=== PATIENT | male | born 1970 | race American Indian/Alaskan Native ===

== ENCOUNTER 2019-06-06 18:28 | Emergency (ER) | payer OTHER ==
[2019-06-06] MEDS ORDERED: NACL 0.9% 1000 ML 1,000 ML IV ONE ×3 (19:41→21:22)
[2019-06-06] MEDS ORDERED: ZOFRAN IV ONE (19:41)
[2019-06-06] MEDS ORDERED: SUBLIMAZE IV ONE (19:41)
--- NOTE | 2019-06-06 19:47 | Emergency Department Report ---
HPI - General Chief Complaint: Back Pain/Injury Time Seen by Provider: 06/06/19 19:33 - HPI HPI: Room 26 The patient is a 48-year-old male presenting with a chief complaint of muscle spasms. The patient states today all working in a hot environment he had profuse sweating. Patient states she began having sharp pain in his left shoulder which then radiated to his right shoulder. Patient states the pain then radiated to his neck. The patient states he went to lay down and rest and the pain subsided. The patient went back to worsen the pain returned. Patient developed pain across his back that felt like spasms. Any type of movement for the spasms on. Patient denies nausea vomiting, chest pain or abdominal pain. Patient denies shortness of breath. EMS was called and administered IV fluids and the patient states he began to improve. Patient states when his pain began initially gave a score of 7-8/10 since he's been hydrated his pain is decreased to 2-3/10 Location: [See above] Duration: [See above] Quality: [See above] Severity: [See above] Modifying factors: [see above] Context: [see above] Mode of transportation: [not driving] ED Past Medical Hx - Past Medical History Previous Medical History?: Yes Hx Hypertension: Yes Hx Renal Disease: Yes (renal insufficiency) - Surgical History Past Surgical History?: No - Family History Family history: no significant - Social History Smoking Status: Never Smoker Substance Use Type: Marijuana - Medications Home Medications: Home Medications Medication Instructions Recorded Confirmed Last Taken Type Cyclobenzaprine [Flexeril] 10 mg PO TID PRN #10 tablet 06/06/19 Unknown Rx ED Review of Systems ROS: Stated complaint: BACK PAIN Other details as noted in HPI Constitutional: diaphoresis Eyes: denies: eye pain ENT: denies: throat pain Respiratory: denies: shortness of breath Cardiovascular: denies: chest pain Endocrine: no symptoms reported Gastrointestinal: denies: abdominal pain, nausea, vomiting Genitourinary: denies: dysuria Musculoskeletal: back pain, myalgia Neurological: denies: headache Physical Exam - Physical Exam Vital Signs: Vital Signs 06/06/19 18:57 Temperature 98.1 F Pulse Rate 59 L Respiratory 16 Rate Blood Pressure 182/110 O2 Sat by Pulse 98 Oximetry Physical Exam: GENERAL: The patient is well-developed well-nourished male lying on stretcher not appearing to be in acute distress. [] HEENT: Normocephalic. Atraumatic. Extraocular motions are intact. Patient has moist mucous membranes. NECK: Supple. No meningitic signs are noted. Trachea midline CHEST/LUNGS: Clear to auscultation. There is no respiratory distress noted. HEART/CARDIOVASCULAR: Regular. There is no tachycardia. There is no gallop rub or murmur. ABDOMEN: Abdomen is soft, nontender. Patient has normal bowel sounds. There is no abdominal distention. SKIN: There is no rash. There is no edema. There is no diaphoresis. NEURO: The patient is awake, alert, and oriented. The patient is cooperative. The patient has normal speech MUSCULOSKELETAL: There is no CVA tenderness. Mild soreness to palpation along the trapezius muscle bilaterally. There is no limitation range of motion. There is no evidence of acute injury. ED Course Vital Signs 06/06/19 18:57 Temperature 98.1 F Pulse Rate 59 L Respiratory 16 Rate Blood Pressure 182/110 O2 Sat by Pulse 98 Oximetry ED Medical Decision Making - Lab Data Result diagrams: 06/06/19 20:02 06/06/19 20:02 Laboratory Tests 06/06/19 06/06/19 06/06/19 20:02 20:02 20:02 WBC 12.0 H RBC 5.16 H Hgb 15.0 Hct 45.4 MCV 88 MCH 29 MCHC 33 RDW 14.9 Plt Count 195 Lymph % (Auto) 10.1 L [place] % (Auto) 4.3 Eos % (Auto) 1.7 Baso % (Auto) 0.4 Lymph # 1.2 [place] # 0.5 Eos # 0.2 Baso # 0.0 Seg Neutrophils % 83.5 H Seg Neutrophils # 10.0 H Sodium 141 Potassium 4.0 Chloride 106.1 Carbon Dioxide 25 Anion Gap 14 BUN 19 Creatinine 1.6 H Estimated GFR 57 BUN/Creatinine Ratio 12 Glucose 116 H Calcium 9.1 Magnesium 2.20 Total Creatine Kinase 281 H Urine Color Urine Turbidity Urine pH Ur Specific Circle Urine Protein Urine Glucose (UA) Urine Ketones Urine Blood Urine Nitrite Urine Bilirubin Urine Urobilinogen Ur Leukocyte Esterase Urine WBC (Auto) Urine RBC (Auto) U Epithel Cells (Auto) Urine Mucus 06/06/19 21:30 WBC RBC Hgb Hct MCV MCH MCHC RDW Plt Count Lymph % (Auto) [place] % (Auto) Eos % (Auto) Baso % (Auto) Lymph # [place] # Eos # Baso # Seg Neutrophils % Seg Neutrophils # Sodium Potassium Chloride Carbon Dioxide Anion Gap BUN Creatinine Estimated GFR BUN/Creatinine Ratio Glucose Calcium Magnesium Total Creatine Kinase Urine Color Straw Urine Turbidity Clear Urine pH 6.[address] 1.014 Urine Protein <15 mg/dl Urine Glucose (UA) Neg Urine Ketones Neg Urine Blood Neg Urine Nitrite Neg Urine Bilirubin Neg Urine Urobilinogen < 2.0 Ur Leukocyte Esterase Neg Urine WBC (Auto) 1.0 Urine RBC (Auto) 2.0 U Epithel Cells (Auto) 1.0 Urine Mucus Few - Differential Diagnosis dehydration, rhabdomyolysis, acute heat exhaustion Critical care attestation.: If time is entered above; I have spent that time in minutes in the direct care of this critically ill patient, excluding procedure time. ED Disposition Clinical Impression: Dehydration, Muscle cramping, Renal insufficiency Disposition: TO HOME OR SELFCARE Is pt being admited?: No Does the pt Need Aspirin: No Condition: Stable Instructions: Muscle Cramp (ED), Heatstroke (ED) Additional Instructions: Return to the emergency department immediately should you develop worsening symptoms, fever, inability to tolerate food or liquid or any other concerns. Prescriptions: Cyclobenzaprine [Flexeril] 10 mg PO TID PRN #10 tablet PRN Reason: Muscle Spasm Referrals: 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 Please follow up with her for further evaluation of your kidney function) Time of Disposition: 22:13
[2019-06-06 20:14] LABS: Basophils % (Auto) 0.4 % (0.0-1.8); Eosinophils # (Auto) 0.2 K/mm3 (0.0-0.4); Eosinophils % (Auto) 1.7 % (0.0-4.3); Hematocrit 45.4 % (35.5-45.6); Lymphocytes # (Auto) 1.2 K/mm3 (1.2-5.4); Lymphocytes % (Auto) 10.1 % (13.4-35.0); Mean Corpuscular HGB Conc 33 % (32-34); Mean Corpuscular Volume 88 fl (84-94); Monocytes # (Auto) 0.5 K/mm3 (0.0-0.8); Monocytes % (Auto) 4.3 % (0.0-7.3); Platelet Count 195 K/mm3 (140-440); Red Blood Count 5.16 M/mm3 (3.65-5.03); Red Cell Distribution Width 14.9 % (13.2-15.2)
[2019-06-06 20:43] LABS: Calcium 9.1 mg/dL (8.4-10.2)
[2019-06-06 22:05] LABS: Bilirubin,Urine NEG (Negative); Blood,Urine NEG (Negative); Color,Urine Straw (Yellow); Mucus,Urine FEW /HPF; Protein,Urine <15 mg/dL mg/dL (Negative); Urobilinogen,Urine < 2.0 mg/dL (<2.0)
[2019-06-06 23:06] VITALS: BP 177/97
== END 2019-06-06 23:03 | disposition home or self-care (01) ==
LOC: ED 18:28
DX: E86.0 Dehydration (principal); N28.9 Disorder of kidney and ureter, unspecified; I10 Essential (primary) hypertension; F12.10 Cannabis abuse, uncomplicated
CPT/HCPCS: 36415; 80048; 81001; 82550; 83735; 85025; 96361; 96374; 96375; 99284; J2405; J3010; J7030

== ENCOUNTER 2022-03-29 01:02 | Inpatient (IN) | payer SELFPAY ==
--- NOTE | 2022-03-29 06:26 | Emergency Department Report ---
ED Chest Pain HPI - General Chief Complaint: Chest Pain Stated Complaint: CHEST PAIN Time Seen by Provider: 03/29/22 06:10 Source: patient, RN notes reviewed, old records reviewed Mode of arrival: Ambulatory Limitations: No Limitations - History of Present Illness Initial Comments: This is a pleasant and cooperative 51-year-old gentleman who typically follows at [facility]. He has a history of body mass index of 37.3, hypertension, and possible renal insufficiency. He has not been on medications for a while. He presents to the ER today with a complaint of central chest pain. The pain does not radiate anywhere. He denies vomiting and diaphoresis. Has mild shortness of breath which is chronic and nonexertional. Denies travel, surgery, immobilization, DVT/PE risk factors. Denies additional complaints at this time. No recent cardiac risk ratification that he is aware of. MD Complaint: chest pain, other -: Sudden Onset: during rest Pain Location: substernal, left chest, right chest Pain Radiation: none Severity: mild, moderate Severity scale (0 -10): 7 Quality: aching, pressure Consistency: constant Improves With: nothing Worsens With: nothing Aspirin use within the Past 7 Days: (0) No - Related Data Previous Rx's Medication Instructions Recorded Last Taken Type Cyclobenzaprine [Flexeril] 10 mg PO TID PRN #10 tablet 06/06/19 Unknown Rx Allergies Allergy/AdvReac Type Severity Reaction Status Date / Time No Known Allergies Allergy Verified 06/06/19 18:57 Heart Score - HEART Score History: Moderately suspicious EKG: Non-specific Age: 45-65 Risk factors: > 3 risk factors or hx of atherosclerotic disease Troponin: < normal limit HEART Score: 5 - EKG Read Time Time EKG Completed: :14 EKG Read Time: 01:14 - Critical Actions Critical Actions: 4-6 pts:12-16.6% risk of adverse cardiac event. Should be admitted ED Review of Systems ROS: Stated complaint: CHEST PAIN Other details as noted in HPI Constitutional: denies: diaphoresis, fever Eyes: denies: eye discharge ENT: denies: congestion Respiratory: denies: wheezing Cardiovascular: chest pain Gastrointestinal: denies: abdominal pain, nausea, hematemesis, melena, hematochezia Musculoskeletal: denies: back pain Neurological: denies: weakness Hematological/Lymphatic: denies: easy bleeding ED Past Medical Hx - Past Medical History Hx Hypertension: Yes Hx Renal Disease: Yes (renal insufficiency) - Social History Smoking Status: Never Smoker Substance Use Type: Marijuana - Medications Home Medications: Home Medications Medication Instructions Recorded Confirmed Last Taken Type Cyclobenzaprine [Flexeril] 10 mg PO TID PRN #10 tablet 06/06/19 Unknown Rx ED Physical Exam - General Limitations: No Limitations General appearance: alert, in no apparent distress, obese - Head Head exam: Present: atraumatic, normocephalic - Eye Eye exam: Present: normal appearance, EOMI. Absent: nystagmus - ENT ENT exam: Present: normal exam, normal orophraynx, mucous membranes moist, normal external ear exam - Neck Neck exam: Present: normal inspection, full ROM. Absent: tenderness, meningismus - Respiratory Respiratory exam: Present: normal lung sounds bilaterally. Absent: respiratory distress, wheezes, rales, rhonchi, stridor, decreased breath sounds - Cardiovascular Cardiovascular Exam: Present: regular rate, normal rhythm, normal heart sounds. Absent: bradycardia, tachycardia, irregular rhythm, systolic murmur, diastolic murmur, rubs, gallop - GI/Abdominal GI/Abdominal exam: Present: soft. Absent: distended, tenderness, guarding, rebound, rigid, pulsatile mass - Rectal Rectal exam: Present: deferred - Extremities Exam Extremities exam: Present: normal inspection, full ROM, other (2+ pulses noted in the bilateral upper and lower extremities. There is no palpable cord. negative Homans sign. Muscular compartments are soft. The pelvis is stable.). Absent: pedal edema, calf tenderness - Back Exam Back exam: Present: normal inspection. Absent: tenderness, CVA tenderness (R), CVA tenderness (L), paraspinal tenderness, vertebral tenderness - Neurological Exam Neurological exam: Present: alert, oriented X3, other (No facial droop. Tongue midline. Extraocular movements intact bilaterally. Facial sensation intact to light touch in V1, V2, V3 distribution bilaterally. 5 and a 5 strength in 4 extremities. Sensation intact to light touch in 4 extremities.). Absent: motor sensory deficit - Psychiatric Psychiatric exam: Present: normal affect, normal mood - Skin Skin exam: Present: warm, dry, intact, normal color. Absent: rash ED Course Vital Signs 03/29/22 03/29/22 03/29/22 01:05 05:28 05:30 Temperature 97.9 F Pulse Rate 64 55 L 55 L Respiratory 20 10 L 12 Rate Blood Pressure 180/109 Blood Pressure 204/108 [Left] O2 Sat by Pulse 100 99 Oximetry 03/29/22 03/29/22 05:33 08:14 Temperature 98.0 F Pulse Rate 60 67 Respiratory 11 L Rate Blood Pressure 179/94 Blood Pressure 180/109 [Left] O2 Sat by Pulse 100 Oximetry - Reevaluation(s) Reevaluation #1: 03/29/22 08:28 Differential diagnosis, including not limited to: Acute coronary syndrome, GERD, gastritis, hiatal hernia, pneumonia, costochondritis, hypertensive urgency, hy pertensive nephropathy Assessment and plan: 51-year-old gentleman with chronic hypertension, who is not currently tachycardic, tachypneic or hypoxic, who denies DVT/PE risk factors, who is low risk by Wells criteria for pulmonary embolism, who is PERC negative, has equal pulses in the upper and lower extremities, no pulsatile abdominal mass, unremarkable mediastinum x-ray of chest; aortic disease very unlikely. Patient at moderate risk for major adverse cardiac event as per heart score. He is found to have progression of renal insufficiency, and markedly abnormal EKG. I suspect hypertensive nephropathy, likely secondary to noncompliance, and poor diet and lifestyle. Have recommended admission to the medical service for blood pressure optimization, and cardiac risk ratification. The patient is agreeable to this plan of care. Appropriate medications ordered. Hospital physician, Dr. Bakari Mcgregor to admit to internal medicine service. JUAN C score - Juan C Score Age > 65: (0) No Aspirin use within the Past 7 Days: (0) No 3 or more CAD Risk Factors: (1) Yes 2 or more Angina events in past 24 hrs: (0) No Known CAD with more than 50% Stenosis: (0) No Elevated Cardiac Markers: (0) No ST Deviation Greater than 0.5mm: (0) No JUAN C Score: 1 ED Medical Decision Making - Lab Data Result diagrams: 03/29/22 06:46 03/29/22 06:46 Vital Signs 03/29/22 03/29/22 03/29/22 01:05 05:28 05:30 Temperature 97.9 F Pulse Rate 64 55 L 55 L Respiratory 20 10 L 12 Rate Blood Pressure 180/109 Blood Pressure 204/108 [Left] O2 Sat by Pulse 100 99 Oximetry 03/29/22 03/29/22 05:33 08:14 Temperature 98.0 F Pulse Rate 60 67 Respiratory 11 L Rate Blood Pressure 179/94 Blood Pressure 180/109 [Left] O2 Sat by Pulse 100 Oximetry Lab Results 03/29/22 03/29/22 03/29/22 Range/Units 06:46 06:46 06:46 WBC 10.4 (4.5-11.0) K/mm3 RBC 5.46 H (3.65-5.03) M/mm3 Hgb 16.0 H (11.8-15.2) gm/dl Hct 48.9 H (35.5-45.6) % MCV 90 (84-94) fl MCH 29 (28-32) pg MCHC 33 (32-34) % RDW 15.3 H (13.2-15.2) % Plt Count 183 (140-440) K/mm3 Lymph % (Auto) 16.4 (13.4-35.0) % [place] % (Auto) 6.1 (0.0-7.3) % Eos % (Auto) 3.6 (0.0-4.3) % Baso % (Auto) 0.4 (0.0-1.8) % Lymph # (Auto) 1.7 (1.2-5.4) K/mm3 [place] # (Auto) 0.6 (0.0-0.8) K/mm3 Eos # (Auto) 0.4 (0.0-0.4) K/mm3 Baso # (Auto) 0.0 (0.0-0.1) K/mm3 Seg Neutrophils % 73.5 H (40.0-70.0) % Seg Neutrophils # 7.6 (1.8-7.7) K/mm3 PT 13.2 (12.2-14.9) Sec. INR 0.91 (0.87-1.13) Sodium 135 L (137-145) mmol/L Potassium 4.8 (3.6-5.0) mmol/L Chloride 100.8 (98-107) mmol/L Carbon Dioxide 26 (22-30) mmol/L Anion Gap 13 mmol/L BUN 26 H (9-20) mg/dL Creatinine 2.0 H (0.8-1.3) mg/dL Estimated GFR 43 ml/min BUN/Creatinine Ratio 13 % Glucose 122 H (75-100) mg/dL Calcium 9.6 (8.4-10.2) mg/dL Total Bilirubin 0.20 (0.1-1.2) mg/dL AST 16 (5-40) units/L ALT 22 (7-56) units/L Alkaline Phosphatase 48 (35-129) units/L Troponin T 0.011 (0.00-0.029) ng/mL Total Protein 6.7 (6.3-8.2) g/dL Albumin 4.1 (3.9-5) g/dL Albumin/Globulin Ratio 1.6 % - EKG Data -: EKG Interpreted by Ok EKG shows normal: sinus rhythm - EKG Data When compared to previous EKG there are: previous EKG unavailable 03/29/22 08:24 The EKG is interpreted at 01: 1 4 Sinus rhythm, rate 58 bpm. Leftward axis deviation. Right bundle branch block, left ventricular hypertrophy. QTC 42 ms. Motion artifact. Abnormal EKG. Not a STEMI - Radiology Data Radiology results: pending, report reviewed, image reviewed CHEST 1 VIEW 03/29/2022 5:58 AM INDICATION / CLINICAL INFORMATION: Chest Pain. COMPARISON: None available. FINDINGS: SUPPORT DEVICES: None. HEART / MEDIASTINUM: No significant abnormality. LUNGS / PLEURA: No significant pulmonary abnormality. No significant pleural effusion. No pneumothorax. ADDITIONAL FINDINGS: No significant additional findings. IMPRESSION: 1. No acute abnormality of the chest. Signer Name: Randal Miller MD Signed: 03/29/2022 6:03 AM Workstation Name: [id number] Critical care attestation.: If time is entered above; I have spent that time in minutes in the direct care of this critically ill patient, excluding procedure time. ED Disposition Clinical Impression: Acute chest pain, Renal insufficiency, Hypertensive urgency Disposition: ADMITTED INPATIENT Is pt being admited?: Yes Does the pt Need Aspirin: No Condition: Good Instructions: Chest Pain (ED)
--- NOTE | 2022-03-29 07:08 | XRay Report ---
CHEST 1 VIEW 03/29/2022 5:58 AM INDICATION / CLINICAL INFORMATION: Chest Pain. COMPARISON: None available. FINDINGS: SUPPORT DEVICES: None. HEART / MEDIASTINUM: No significant abnormality. LUNGS / PLEURA: No significant pulmonary abnormality. No significant pleural effusion. No pneumothora x. ADDITIONAL FINDINGS: No significant additional findings. IMPRESSION: 1. No acute abnormality of the chest. Signer Name: Randal Miller MD Signed: 03/29/2022 7:03 AM Workstation Name: [id number]
[2022-03-29 07:23] LABS: Basophils % (Auto) 0.4 % (0.0-1.8); Eosinophils # (Auto) 0.4 K/mm3 (0.0-0.4); Eosinophils % (Auto) 3.6 % (0.0-4.3); Hematocrit 48.9 % (35.5-45.6); Lymphocytes # (Auto) 1.7 K/mm3 (1.2-5.4); Lymphocytes % (Auto) 16.4 % (13.4-35.0); Mean Corpuscular HGB Conc 33 % (32-34); Mean Corpuscular Volume 90 fl (84-94); Monocytes # (Auto) 0.6 K/mm3 (0.0-0.8); Monocytes % (Auto) 6.1 % (0.0-7.3); Platelet Count 183 K/mm3 (140-440); Red Blood Count 5.46 M/mm3 (3.65-5.03); Red Cell Distribution Width 15.3 % (13.2-15.2)
[2022-03-29 07:28] LABS: Albumin 4.1 g/dL (3.9-5); Calcium 9.6 mg/dL (8.4-10.2)
[2022-03-29 07:32] LABS: INR 0.91 (0.87-1.13)
[2022-03-29] MEDS ORDERED: hydrALAZINE 20 MG/1 ML INJ IV STA (07:46)
[2022-03-29] MEDS ORDERED: ASPIRIN 325 MG TAB PO ONE (07:46)
[2022-03-29] MEDS ORDERED: SODIUM CHLORIDE 0.9% 500 ML 500 ML IV ONE (07:46)
[2022-03-29] MEDS ORDERED: CYCLOBENZAPRINE 10 MG TAB PO PRN (11:28)
[2022-03-29] MEDS ORDERED: MORPHINE 2 MG/1 ML INJ IV PRN (11:31)
[2022-03-29] MEDS ORDERED: ACETAMINOPHEN 325 MG TAB PO PRN (11:31)
[2022-03-29] MEDS ORDERED: ONDANSETRON 4 MG/2 ML INJ IV PRN (11:31)
[2022-03-29] MEDS ORDERED: HYDROmorphone 1 MG/1 ML INJ IV PRN (11:31)
--- NOTE | 2022-03-29 11:48 | History and Physical Report ---
History of Present Illness Date of examination: 03/29/22 Date of admission: 03/29/2022 Chief complaint: Acute chest pain since a.m. History of present illness: 51-year-old -[place] male with history of hypertension comes in for chest pain since a.m. Chest pain is retrosternal. Nonradiating. No diaphoresis. No shortness of breath. Patient has not been taking his blood pressure medications for the last couple of months. Patient usually goes to [facility]. Chest pain is nonradiating. No exacerbating or relieving factors. In the emergency room patient blood pressure was very high. Blood pressure was 204/108. Patient being admitted for hypertensive emergency acute pain. - Past Medical History --Hypertension: Yes --Renal Disease: Yes (renal insufficiency) - Social History Smoking Status: Never Smoker Substance Use Type: Marijuana - Medications Home Medications: Home Medications Medication Instructions Recorded Confirmed Last Taken Type Cyclobenzaprine [Flexeril] 10 mg PO TID PRN #10 tablet 06/06/19 Unknown Rx Review of Systems ROS: Stated complaint: CHEST PAIN Other details as noted in HPI Constitutional: denies: diaphoresis, fever Eyes: denies: eye discharge ENT: denies: congestion Respiratory: denies: wheezing Cardiovascular: chest pain Gastrointestinal: denies: abdominal pain, nausea, hematemesis, melena, hematochezia Musculoskeletal: denies: back pain Neurological: denies: weakness Hematological/Lymphatic: denies: easy bleeding Past History Past Surgical History: No surgical history Family history: hypertension Medications and Allergies Allergies Allergy/AdvReac Type Severity Reaction Status Date / Time No Known Allergies Allergy Verified 06/06/19 18:57 Home Medications Medication Instructions Recorded Confirmed Last Taken Type No Known Home Medications [No 03/30/22 03/30/22 Unknown History Reported Home Medications] Exam - Constitutional Vitals: Temp Pulse Resp BP Pulse Ox 98.0 F 70 17 188/103 100 03/29/22 05:33 03/29/22 08:30 03/29/22 08:30 03/29/22 08:30 03/29/22 08:30 General appearance: Present: no acute distress, well-nourished - EENT Eyes: Present: PERRL ENT: hearing intact, clear oral mucosa - Neck Neck: Present: supple, normal ROM - Respiratory Respiratory effort: normal Respiratory: bilateral: CTA - Cardiovascular Heart rate: 78 Rhythm: regular Heart Sounds: Present: S1 & S2. Absent: rub, click - Extremities Extremities: pulses symmetrical, No edema Peripheral Pulses: within normal limits - Abdominal General gastrointestinal: Present: soft, non-tender, non-distended, normal bowel sounds Male genitourinary: Present: normal - Integumentary Integumentary: Present: clear, warm, dry - Musculoskeletal Musculoskeletal: gait normal, strength equal bilaterally - Psychiatric Psychiatric: appropriate mood/affect, intact judgment & insight - Neurologic Neurologic: CNII-XII intact, moves all extremities HEART Score - HEART Score EKG: Non-specific Age: 45-65 Risk factors: > 3 risk factors or hx of atherosclerotic disease Troponin: Troponin T 0.021 ng/mL (0.00-0.029) 03/29/22 09:26 Troponin: < normal limit - Critical Actions Critical Actions: 4-6 pts:12-16.6% risk of adverse cardiac event. Should be admitted Results - Labs CBC & Chem 7: 03/30/22 15:59 03/30/22 07:16 Labs: Laboratory Last Values WBC 10.4 K/mm3 (4.5-11.0) 03/29/22 06:46 RBC 5.46 M/mm3 (3.65-5.03) H 03/29/22 06:46 Hgb 16.0 gm/dl (11.8-15.2) H 03/29/22 06:46 Hct 48.9 % (35.5-45.6) H 03/29/22 06:46 MCV 90 fl (84-94) 03/29/22 06:46 MCH 29 pg (28-32) 03/29/22 06:46 MCHC 33 % (32-34) 03/29/22 06:46 RDW 15.3 % (13.2-15.2) H 03/29/22 06:46 Plt Count 183 K/mm3 (140-440) 03/29/22 06:46 Lymph % (Auto) 16.4 % (13.4-35.0) 03/29/22 06:46 [place] % (Auto) 6.1 % (0.0-7.3) 03/29/22 06:46 Eos % (Auto) 3.6 % (0.0-4.3) 03/29/22 06:46 Baso % (Auto) 0.4 % (0.0-1.8) 03/29/22 06:46 Lymph # (Auto) 1.7 K/mm3 (1.2-5.4) 03/29/22 06:46 [place] # (Auto) 0.6 K/mm3 (0.0-0.8) 03/29/22 06:46 Eos # (Auto) 0.4 K/mm3 (0.0-0.4) 03/29/22 06:46 Baso # (Auto) 0.0 K/mm3 (0.0-0.1) 03/29/22 06:46 Seg Neutrophils % 73.5 % (40.0-70.0) H 03/29/22 06:46 Seg Neutrophils # 7.6 K/mm3 (1.8-7.7) 03/29/22 06:46 PT 13.2 Sec. (12.2-14.9) 03/29/22 06:46 INR 0.91 (0.87-1.13) 03/29/22 06:46 Sodium 135 mmol/L (137-145) L 03/29/22 06:46 Potassium 4.8 mmol/L (3.6-5.0) 03/29/22 06:46 Chloride 100.8 mmol/L (98-107) 03/29/22 06:46 Carbon Dioxide 26 mmol/L (22-30) 03/29/22 06:46 Anion Gap 13 mmol/L 03/29/22 06:46 BUN 26 mg/dL (9-20) H 03/29/22 06:46 Creatinine 2.0 mg/dL (0.8-1.3) H 03/29/22 06:46 Estimated GFR 43 ml/min 03/29/22 06:46 BUN/Creatinine Ratio 13 % 03/29/22 06:46 Glucose 122 mg/dL (75-100) H 03/29/22 06:46 Calcium 9.6 mg/dL (8.4-10.2) 03/29/22 06:46 Total Bilirubin 0.20 mg/dL (0.1-1.2) 03/29/22 06:46 AST 16 units/L (5-40) 03/29/22 06:46 ALT 22 units/L (7-56) 03/29/22 06:46 Alkaline Phosphatase 48 units/L (35-129) 03/29/22 06:46 Troponin T 0.021 ng/mL (0.00-0.029) 03/29/22 09:26 Total Protein 6.7 g/dL (6.3-8.2) 03/29/22 06:46 Albumin 4.1 g/dL (3.9-5) 03/29/22 06:46 Albumin/Globulin Ratio 1.6 % 03/29/22 06:46 Short CBC 03/29/22 Range/Units 06:46 WBC 10.4 (4.5-11.0) K/mm3 Hgb 16.0 H (11.8-15.2) gm/dl Hct 48.9 H (35.5-45.6) % Plt Count 183 (140-440) K/mm3 BMP 03/29/22 06:46 Sodium 135 L Potassium 4.8 Chloride 100.8 Carbon Dioxide 26 BUN 26 H Creatinine 2.0 H Glucose 122 H Calcium 9.6 Cardiac Enzymes 03/29/22 03/29/22 Range/Units 06:46 09:26 Troponin T 0.011 0.021 (0.00-0.029) ng/mL Liver Function 03/29/22 Range/Units 06:46 Total Bilirubin 0.20 (0.1-1.2) mg/dL AST 16 (5-40) units/L ALT 22 (7-56) units/L Alkaline Phosphatase 48 (35-129) units/L Albumin 4.1 (3.9-5) g/dL - Imaging and Cardiology EKG: report reviewed (LVH by voltage criteria, no acute ST-T wave changes, right bundle branch block) Chest x-ray: report reviewed (No acute findings) Assessment and Plan Advance Directives: Yes (Full code) VTE prophylaxis?: Chemical Plan of care discussed with patient/family: Yes - Patient Problems (1) Hypertensive emergency Current Visit: Yes Status: Acute Plan to address problem: Patient initiated on antihypertensives Nifedipine and carvedilol IV hydralazine as needed (2) NSTEMI (non-ST elevated myocardial infarction) Current Visit: Yes Status: Acute Plan to address problem: Patient initiated on IV heparin Cardiology consult requested (3) WILLIAM (acute kidney injury) Current Visit: Yes Status: Acute Plan to address problem: Nephrology consult requested (4) Advance care planning Current Visit: Yes Status: Acute Plan to address problem: Disease education conducted, care plan discussed, diagnosis discussed, prognosis discussed. Patient is full code. Patient acknowledged understanding and agreement with care plan. +30 minutes. (5) DVT prophylaxis Current Visit: Yes Status: Acute Plan to address problem: On anticoagulation GI prophylaxis.
[2022-03-29] MEDS ORDERED: amLODIPine 5 MG TAB PO SCH (12:00)
[2022-03-29] MEDS ORDERED: carvediloL 6.25 MG TAB PO SCH (12:00)
[2022-03-29] MEDS: VALSARTAN 160MG TAB PO SCH (12:27)
[2022-03-29] MEDS: FAMOTIDINE 20 MG TAB PO SCH (12:27)
[2022-03-29] MEDS: HEPARIN 5,000 UNIT/1 ML VIAL SUB-Q SCH (13:29)
[2022-03-29 14:27] LABS: Chol/HDL Ratio 5.19 %
--- NOTE | 2022-03-29 17:16 | Electrocardiograph Report ---
[facility] Test Date: 2022-03-29 Test Time: 01:11:25 Pat Name: ALCON BRAY Department: Room: [facility] Gender: M Clinical Operations Leader: AMILCAR : 1970 Requested By: DONA FAULKNER Order Number: [id number] Reading MD: Joyce Naqvi Measurements Intervals [place] Rate: 58 P: 69 IN: 187 QRS: -24 QRSD: 177 T: -15 QT: 492 QTc: 482 Interpretive Statements Sinus rhythm Right bundle branch block No previous ECG available for comparison Electronically Signed On 03-29-2022 17:16:12 EDT by Joyce Naqvi
[2022-03-29] MEDS ORDERED: LORazepam 2 MG/ML VIAL IM ONE (18:04)
[2022-03-30] MEDS: carvediloL 12.5 MG TAB PO SCH ×3 (00:10→21:58)
[2022-03-30] MEDS: HEPARIN 5,000 UNIT/1 ML VIAL SUB-Q SCH ×2 (00:15→09:41)
[2022-03-30] MEDS: VALSARTAN 160MG TAB PO SCH ×2 (00:15→12:35)
[2022-03-30] MEDS: FAMOTIDINE 20 MG TAB PO SCH ×3 (00:39→21:58)
[2022-03-30] MEDS: hydrALAZINE 20 MG/1 ML INJ IV PRN ×3 (03:54→16:37)
[2022-03-30 08:05] LABS: Calcium 9.5 mg/dL (8.4-10.2)
[2022-03-30 08:15] LABS: Basophils % (Auto) 0.2 % (0.0-1.8); Eosinophils # (Auto) 0.2 K/mm3 (0.0-0.4); Eosinophils % (Auto) 2.6 % (0.0-4.3); Hematocrit 51.3 % (35.5-45.6); Hemoglobin 16.9 gm/dl (11.8-15.2); Lymphocytes # (Auto) 1.5 K/mm3 (1.2-5.4); Lymphocytes % (Auto) 15.8 % (13.4-35.0); Mean Corpuscular HGB Conc 33 % (32-34); Mean Corpuscular Volume 88 fl (84-94); Monocytes # (Auto) 0.7 K/mm3 (0.0-0.8); Monocytes % (Auto) 7.1 % (0.0-7.3); Platelet Count 195 K/mm3 (140-440); Red Cell Distribution Width 14.7 % (13.2-15.2)
[2022-03-30] MEDS ORDERED: amLODIPine 10 MG TAB PO SCH (10:00)
--- NOTE | 2022-03-30 13:23 | Progress Note ---
Assessment and Plan - Patient Problems (1) Hypertensive emergency Current Visit: Yes Status: Acute Plan to address problem: Patient initiated on antihypertensives Nifedipine and carvedilol IV hydralazine as needed (2) NSTEMI (non-ST elevated myocardial infarction) Current Visit: Yes Status: Acute Plan to address problem: Patient on IV heparin drip Cardiology consult appreciated (3) WILLIAM (acute kidney injury) Current Visit: Yes Status: Acute Plan to address problem: Nephrology consult requested (4) DVT prophylaxis Current Visit: Yes Status: Acute Plan to address problem: On anticoagulation GI prophylaxis. (5) Advance care planning Current Visit: Yes Status: Acute Plan to address problem: Disease education conducted, care plan discussed, diagnosis discussed, prognosis discussed. Patient is full code. Patient acknowledged understanding and agreement with care plan. +30 minutes. Subjective Date of service: 03/30/22 Principal diagnosis: Hypertensive emergency, non-STEMI Interval history: 51-year-old -Mauritian male with history of hypertension comes in for chest pain since a.m. Chest pain is retrosternal. Nonradiating. No diaphoresis. No shortness of breath. Patient has not been taking his blood pressure medications for the last couple of months. Patient usually goes to [facility]. Chest pain is nonradiating. No exacerbating or relieving factors. In the emergency room patient blood pressure was very high. Blood pressure was 204/108. Patient being admitted for hypertensive emergency acute pain. 03/30/2022 Chest pain improved On IV heparin drip Cardiology consult appreciated Nephrology consult appreciated Objective - Constitutional Vitals: Vital Signs - 12hr 03/30/22 03/30/22 03/30/22 03:43 07:47 10:00 Temperature 97.9 F 98.5 F Pulse Rate 67 71 Respiratory 18 18 Rate Blood Pressure 179/123 155/102 O2 Sat by Pulse 98 97 Oximetry 03/30/22 03/30/22 11:21 11:39 Temperature 98.0 F Pulse Rate 65 Respiratory 18 Rate Blood Pressure 172/108 172/108 O2 Sat by Pulse 98 Oximetry General appearance: Present: no acute distress, well-nourished - EENT Eyes: PERRL, EOM intact ENT: hearing intact, clear oral mucosa Ears: bilateral: normal - Neck Neck: supple, normal ROM - Respiratory Respiratory effort: normal Respiratory: bilateral: CTA - Breasts Breasts: normal - Cardiovascular Heart rate: 78 Rhythm: regular Heart Sounds: Present: S1 & S2. Absent: gallop, rub Extremities: pulses intact, No edema, normal color, Full ROM - Gastrointestinal General gastrointestinal: Present: soft, non-tender, non-distended, normal bowel sounds - Genitourinary Male genitourinary: normal - Integumentary Integumentary: clear, warm, dry - Musculoskeletal Musculoskeletal: 1, strength equal bilaterally - Neurologic Neurologic: moves all extremities - Psychiatric Psychiatric: memory intact, appropriate mood/affect, intact judgment & insight - Labs CBC & Chem 7: 03/30/22 15:59 03/30/22 07:16 Labs: Abnormal lab results 03/29/22 03/29/22 03/30/22 Range/Units 12:52 18:06 07:16 RBC 5.80 H (3.65-5.03) M/mm3 Hgb 16.9 H (11.8-15.2) gm/dl Hct 51.3 H (35.5-45.6) % Seg Neutrophils % 74.3 H (40.0-70.0) % BUN (9-20) mg/dL Creatinine (0.8-1.3) mg/dL Glucose (75-100) mg/dL AST (5-40) units/L Troponin T 0.044 H D 0.113 H* D (0.00-0.029) ng/mL Triglycerides 153 H (2-149) mg/dL Cholesterol 218 H (50-199) mg/dL LDL Cholesterol Direct 159 H (50-130) mg/dL 03/30/22 Range/Units 07:16 RBC (3.65-5.03) M/mm3 Hgb (11.8-15.2) gm/dl Hct (35.5-45.6) % Seg Neutrophils % (40.0-70.0) % BUN 21 H (9-20) mg/dL Creatinine 1.8 H (0.8-1.3) mg/dL Glucose 133 H (75-100) mg/dL AST 48 H (5-40) units/L Troponin T (0.00-0.029) ng/mL Triglycerides (2-149) mg/dL Cholesterol (50-199) mg/dL LDL Cholesterol Direct (50-130) mg/dL HEART Score - HEART Score EKG: Non-specific Age: 45-65 Risk factors: > 3 risk factors or hx of atherosclerotic disease Troponin: Troponin T 0.113 ng/mL (0.00-0.029) H* D 03/29/22 18:06 Troponin: < normal limit - Critical Actions Critical Actions: 4-6 pts:12-16.6% risk of adverse cardiac event. Should be admitted
[2022-03-30] MEDS ORDERED: HEPARIN 10,000 UNITS/10 ML VIAL IV PRN (14:00)
[2022-03-30] MEDS ORDERED: HEPARIN/ 0.45% NACL DRIP 25,000 UNIT/500 ML BAG IV SCH (14:00)
[2022-03-30] MEDS: NIFEdipine XL 90 MG TAB PO SCH (14:13)
[2022-03-30 17:21] LABS: Hematocrit 50.7 % (35.5-45.6); Hemoglobin 17.2 gm/dl (11.8-15.2)
[2022-03-30 17:33] LABS: INR 0.93 (0.87-1.13)
[2022-03-30 17:34] LABS: Partial Thromboplastin Time 34.3 Sec. (24.2-36.6)
[2022-03-31] MEDS: VALSARTAN 160MG TAB PO SCH (00:14)
[2022-03-31] MEDS: FAMOTIDINE 20 MG TAB PO SCH ×2 (10:53→22:18)
[2022-03-31] MEDS: NIFEdipine XL 90 MG TAB PO SCH ×2 (10:53→22:17)
[2022-03-31] MEDS: carvediloL 12.5 MG TAB PO SCH ×2 (10:53→22:17)
--- NOTE | 2022-03-31 11:02 | Consultation ---
Medications and Allergies Allergies Allergy/AdvReac Type Severity Reaction Status Date / Time No Known Allergies Allergy Verified 06/06/19 18:57 Home Medications Medication Instructions Recorded Confirmed Last Taken Type No Known Home Medications [No 03/30/22 03/30/22 Unknown History Reported Home Medications] Active Meds: Active Medications Acetaminophen (Acetaminophen 325 Mg Tab) 650 mg PO Q4H PRN PRN Reason: Pain MILD(1-3)/Fever >100.5/DUARTE Last Admin: 03/30/22 19:48 Dose: 650 mg Aspirin (Aspirin 325 Mg Tab) 325 mg PO QDAY [facility] Carvedilol (Carvedilol 12.5 Mg Tab) 12.5 mg PO Q12HR [facility] Last Admin: 03/31/22 10:53 Dose: 12.5 mg Cyclobenzaprine HCl (Cyclobenzaprine 10 Mg Tab) 10 mg PO TID PRN PRN Reason: Muscle Spasm Last Admin: 03/30/22 19:49 Dose: 10 mg Famotidine (Famotidine 20 Mg Tab) 20 mg PO BID [facility] Last Admin: 03/31/22 10:53 Dose: 20 mg Heparin Sodium (Porcine) (Heparin 10,000 Units/10 Ml Vial) 5,000 unit 40 unit/kg (5000 unit) IV Q6H PRN PRN Reason: Anti-Xa Assay < 0.1 units/ml Heparin Sodium (Porcine) (Heparin 5,000 Unit/1 Ml Vial) 5,000 unit SUB-Q Q8HR [facility] Hydralazine HCl (Hydralazine 20 Mg/1 Ml Inj) 10 mg IV Q3H PRN PRN Reason: Blood Pressure Last Admin: 03/30/22 16:37 Dose: 10 mg Hydromorphone HCl (Hydromorphone 1 Mg/1 Ml Inj) 1 mg IV Q3H PRN PRN Reason: Pain , Severe (7-10) Isosorbide Mononitrate (Isosorbide Mononitrate Er 30 Mg Tab) 30 mg PO QDAY [facility] Morphine Sulfate (Morphine 2 Mg/1 Ml Inj) 2 mg IV Q4H PRN PRN Reason: Pain, Moderate (4-6) Nifedipine (Nifedipine Xl 90 Mg Tab) 90 mg PO QDAY [facility] Last Admin: 03/31/22 10:53 Dose: 90 mg Ondansetron HCl (Ondansetron 4 Mg/2 Ml Inj) 4 mg IV Q8H PRN PRN Reason: Nausea And Vomiting Sodium Chloride (Sodium Chloride 0.9% 10 Ml Flush Syringe) 10 ml IV BID GIANNA Last Admin: 03/31/22 10:53 Dose: 10 ml Sodium Chloride (Sodium Chloride 0.9% 10 Ml Flush Syringe) 10 ml IV PRN PRN PRN Reason: LINE FLUSH Physical Examination Vital Signs Temp Pulse Resp BP Pulse Ox 97.9 F 64 20 204/108 100 03/29/22 01:05 03/29/22 01:05 03/29/22 01:05 03/29/22 01:05 03/29/22 01:05 Results 03/30/22 15:59 03/30/22 07:16 Coagulation 03/30/22 Range/Units 15:59 PT 13.5 (12.2-14.9) Sec. INR 0.93 (0.87-1.13) APTT 34.3 (24.2-36.6) Sec. CBC 03/30/22 Range/Units 15:59 Hgb 17.2 H (11.8-15.2) gm/dl Hct 50.7 H (35.5-45.6) % Plt Count 194 (140-440) K/mm3 Assessment and Plan Full consult dictated. Thank you.
[2022-03-31] MEDS: ASPIRIN 325 MG TAB PO SCH (11:51)
--- NOTE | 2022-03-31 13:02 | Progress Note ---
Assessment and Plan - Patient Problems (1) NSTEMI (non-ST elevated myocardial infarction) Current Visit: Yes Status: Acute Plan to address problem: IV heparin drip--- stopped Cardiology consult appreciated Stress test in the morning (2) Hypertensive emergency Current Visit: Yes Status: Acute Plan to address problem: Patient initiated on antihypertensives Nifedipine and carvedilol IV hydralazine as needed (3) WILLIAM (acute kidney injury) Current Visit: Yes Status: Acute Plan to address problem: Nephrology consult requested (4) DVT prophylaxis Current Visit: Yes Status: Acute Plan to address problem: On anticoagulation GI prophylaxis. (5) Advance care planning Current Visit: Yes Status: Acute Plan to address problem: Disease education conducted, care plan discussed, diagnosis discussed, prognosis discussed. Patient is full code. Patient acknowledged understanding and agreement with care plan. +30 minutes. Subjective Date of service: 03/31/22 Principal diagnosis: Hypertensive emergency, NSTEMI, WILLIAM Interval history: 51-year-old -Austrian male with history of hypertension comes in for chest pain since a.m. Chest pain is retrosternal. Nonradiating. No diaphoresis. No shortness of breath. Patient has not been taking his blood pressure medications for the last couple of months. Patient usually goes to [facility]. Chest pain is nonradiating. No exacerbating or relieving factors. In the emergency room patient blood pressure was very high. Blood pressure was 204/108. Patient being admitted for hypertensive emergency acute pain. 03/30/2022 Chest pain improved On IV heparin drip Cardiology consult appreciated Nephrology consult appreciated 03/31/2022 Heparin drip stopped after discussing with cardiology Patient for stress test in the morning Objective - Constitutional Vitals: Vital Signs - 12hr 03/31/22 03/31/22 03/31/22 03:47 08:18 11:43 Temperature 98.6 F 97.9 F 97.7 F Pulse Rate 82 85 87 Respiratory 16 18 18 Rate Blood Pressure 149/104 151/106 139/90 O2 Sat by Pulse 98 96 97 Oximetry General appearance: Present: no acute distress, well-nourished - EENT Eyes: PERRL, EOM intact ENT: hearing intact, clear oral mucosa Ears: bilateral: normal - Neck Neck: supple, normal ROM - Respiratory Respiratory effort: normal Respiratory: bilateral: CTA - Breasts Breasts: normal - Cardiovascular Heart rate: 78 Rhythm: regular Heart Sounds: Present: S1 & S2. Absent: gallop, rub Extremities: pulses intact, No edema, normal color, Full ROM - Gastrointestinal General gastrointestinal: Present: soft, non-tender, non-distended, normal bowel sounds - Genitourinary Male genitourinary: normal - Integumentary Integumentary: clear, warm, dry - Musculoskeletal Musculoskeletal: 1, strength equal bilaterally - Neurologic Neurologic: moves all extremities - Psychiatric Psychiatric: memory intact, appropriate mood/affect, intact judgment & insight - Labs CBC & Chem 7: 03/30/22 15:59 03/30/22 07:16 Labs: Abnormal lab results 03/30/22 03/30/22 03/30/22 Range/Units 15:59 20:57 20:57 Hgb 17.2 H (11.8-15.2) gm/dl Hct 50.7 H (35.5-45.6) % Heparin Anti-Xa Level 0.19 L (0.3-0.7) U.I./ml Troponin T 0.330 H* D (0.00-0.029) ng/mL HEART Score - HEART Score EKG: Non-specific Age: 45-65 Risk factors: > 3 risk factors or hx of atherosclerotic disease Troponin: Troponin T 0.330 ng/mL (0.00-0.029) H* D 03/30/22 20:57 Troponin: < normal limit - Critical Actions Critical Actions: 4-6 pts:12-16.6% risk of adverse cardiac event. Should be admitted
[2022-03-31] MEDS: HEPARIN 5,000 UNIT/1 ML VIAL SUB-Q SCH ×2 (14:27→22:18)
--- NOTE | 2022-03-31 15:15 | Consultation ---
History of Present Illness - Reason for Consult Consult date: 03/31/22 chronic renal failure Requesting physician: KECIA AREVALO - History of Present Illness 51-year-old male with a history of hypertension chronic kidney disease stage not known. Patient has not been following up with a primary care doctor recently. He is to follow-up at [place]. He has not had any medications for at least several months. Presents on account of chest pain and nonexertional shortness of breath. Describes the pain as an achy feeling 5-6 over 10 worse on lying down and improves after stepping outside to get fresh air. Patient states that his blood pressure was better controlled until about a week ago whe hen he got into an argument with a neighbor. He believes blood pressure controlled worsening since then. Past History Past Medical History: hypertension, renal failure (Chronic kidney disease) Past Surgical History: No surgical history Social history: lives with family. denies: Lives alone, smoking, alcohol abuse, prescription drug abuse, IV drug use Family history: hypertension (Mother and sister) Medications and Allergies Allergies Allergy/AdvReac Type Severity Reaction Status Date / Time No Known Allergies Allergy Verified 06/06/19 18:57 Home Medications Medication Instructions Recorded Confirmed Last Taken Type No Known Home Medications [No 03/30/22 03/30/22 Unknown History Reported Home Medications] Active Meds: Active Medications Acetaminophen (Acetaminophen 325 Mg Tab) 650 mg PO Q4H PRN PRN Reason: Pain MILD(1-3)/Fever >100.5/DUARTE Last Admin: 03/30/22 19:48 Dose: 650 mg Aspirin (Aspirin 325 Mg Tab) 325 mg PO QDAY ON LICENSE OF [facility] Last Admin: 03/31/22 11:51 Dose: 325 mg Carvedilol (Carvedilol 12.5 Mg Tab) 12.5 mg PO Q12HR ON LICENSE OF [facility] Last Admin: 03/31/22 10:53 Dose: 12.5 mg Cyclobenzaprine HCl (Cyclobenzaprine 10 Mg Tab) 10 mg PO TID PRN PRN Reason: Muscle Spasm Last Admin: 03/30/22 19:49 Dose: 10 mg Famotidine (Famotidine 20 Mg Tab) 20 mg PO BID [facility] OF [facility] Last Admin: 03/31/22 10:53 Dose: 20 mg Heparin Sodium (Porcine) (Heparin 5,000 Unit/1 Ml Vial) 5,000 unit SUB-Q Q8HR [facility] OF [facility] Last Admin: 03/31/22 14:27 Dose: 5,000 unit Hydralazine HCl (Hydralazine 20 Mg/1 Ml Inj) 10 mg IV Q3H PRN PRN Reason: Blood Pressure Last Admin: 03/30/22 16:37 Dose: 10 mg Hydromorphone HCl (Hydromorphone 1 Mg/1 Ml Inj) 1 mg IV Q3H PRN PRN Reason: Pain , Severe (7-10) Isosorbide Mononitrate (Isosorbide Mononitrate Er 30 Mg Tab) 30 mg PO QDAY [facility] OF [facility] Morphine Sulfate (Morphine 2 Mg/1 Ml Inj) 2 mg IV Q4H PRN PRN Reason: Pain, Moderate (4-6) Nifedipine (Nifedipine Xl 90 Mg Tab) 90 mg PO QDAY [facility] Last Admin: 03/31/22 10:53 Dose: 90 mg Ondansetron HCl (Ondansetron 4 Mg/2 Ml Inj) 4 mg IV Q8H PRN PRN Reason: Nausea And Vomiting Sodium Chloride (Sodium Chloride 0.9% 10 Ml Flush Syringe) 10 ml IV BID [facility] OF [facility] Last Admin: 03/31/22 10:53 Dose: 10 ml Sodium Chloride (Sodium Chloride 0.9% 10 Ml Flush Syringe) 10 ml IV PRN PRN PRN Reason: LINE FLUSH Review of Systems ROS unobtainable: due to mental status Cardiovascular: chest pain, no orthopnea, no palpitations, no rapid/irregular heart beat, no lightheadedness, no shortness of breath, no dyspnea on exertion Respiratory: no cough, no cough with sputum, no excessive sputum, no hemoptysis, no congestion, no wheezing, no pleurisy Gastrointestinal: no abdominal pain Genitourinary Male: no dysuria, no hematuria, no urinary frequency, no urinary hesitancy, no nocturia Musculoskeletal: no neck stiffness, no arm numbness/tingling Endocrine: no cold intolerance, no excessive thirst, no polydipsia Hematologic/Lymphatic: no easy bruising, no easy bleeding Allergic/Immunologic: no urticaria Exam - Vital Signs Vital signs: Vital Signs Temp Pulse Resp BP Pulse Ox 97.9 F 64 20 204/108 100 03/29/22 01:05 03/29/22 01:05 03/29/22 01:05 03/29/22 01:05 03/29/22 01:05 - Physical Exam Narrative exam: Obese tall middle-aged -Belizean male lying in bed in no acute distress In no acute distress HEENT: NCAT, pink oral mucous membrane Neck: Supple, no venous distention CVS: S1S2 RRR with no murmur, rub or gallop Chest: Clear to auscultation Abdomen: Protuberant, soft, nontender, no organomegaly, bowel sounds are present Extremities: No edema Genitourinary: Deferred Skin: Warm and dry Neuro: Awake, alert no focal deficits Results - Lab Results 03/30/22 15:59 03/30/22 07:16 Most recent lab results Calcium 9.5 mg/dL (8.4-10.2) 03/30/22 07:16 Assessment and Plan - Patient Problems (1) Chronic kidney disease, stage 3a Current Visit: Yes Status: Acute Plan to address problem: Suspect chronic kidney disease secondary to hypertensive nephrosclerosis. It is unclear if patient has any acute exacerbation. We will get urine studies and a kidney ultrasound. Stressed importance of keeping blood pressure controlled and keeping to moderate protein diet to decrease/slow progression of chronic kidney disease. Patient understands implications and does not want to get on dialysis. He promises to do better. Follow-up electrolytes and renal function (2) Acute chest pain Current Visit: Yes Status: Acute Plan to address problem: For stress test tomorrow per cardiology (3) Hypertensive urgency Current Visit: Yes Status: Acute Plan to address problem: Blood pressure is uncontrolled despite current medications. Adjust medications on follow-up blood pressure.
--- NOTE | 2022-03-31 17:40 | Ultrasound Report ---
ULTRASOUND RENAL INDICATION / CLINICAL INFORMATION: Acute kidney injury. COMPARISON: None available. FINDINGS: RIGHT KIDNEY: Length = 9.1 cm. - Echogenicity: Normal. - Cortical Thickness: Normal. - Hydronephrosis: None. - Cyst / Mass: None. - Stones: None seen. LEFT KIDNEY: Length = 9.1 cm. - Echogenicity: Normal. - Cortical Thickness: Normal. - Hydronephrosis: None. - Cyst / Mass: None. - Stones: None seen. URINARY BLADDER: No significant abnormality. FREE FLUID: None. ADDITIONAL FINDINGS: None. IMPRESSION: 1. No significant abnormality. No hydronephrosis. Signer Name: Jules Santiago MD Signed: 03/31/2022 5:36 PM Workstation Name: [id number]
--- NOTE | 2022-04-01 01:31 | Consultation ---
DATE OF CONSULTATION: 03/31/2022 CARDIOLOGY CONSULTATION REFERRING PHYSICIAN: Hospitalist claudio, Dr. Mcgregor REASON FOR CONSULTATION: Advice and opinion regarding chest pain. HISTORY OF PRESENT ILLNESS: The patient is a very pleasant 51-year-old -[place]ic gentleman, who has not seen doctors in sometime, used to follow with [place], history of hypertension and obesity. He has not been on medications for sometime. He had chest pain several days ago, brought to the Emergency Room late Lexx night. Had sharp chest pain. He has not had chest pain since he has been in the hospital and feels much better. It should be noted at that time his systolic blood pressure was over 210 mmHg. No recent travel. Occasional leg swelling, mild orthopnea. Again, no chest pain, nausea or vomiting at this point. No fevers, chills, headache, blurred vision, feels "back to normal." PAST MEDICAL HISTORY: As aforementioned. SOCIAL HISTORY: Nonsmoker, nondrinker. ALLERGIES: No known, drug, food or environmental allergies. INPATIENT MEDICATIONS: Reviewed. No outpatient medications. FAMILY HISTORY: No family history of premature heart disease. PHYSICAL EXAMINATION: VITAL SIGNS: Currently, blood pressure is 149/100, tele reveals sinus rhythm in the 70s and 80s, O2 sats 96% on room air. GENERAL: This is a middle-aged -Icelandic gentleman, in no apparent distress, oriented x3, lying flat in bed, very comfortable. HEENT: Sclerae are anicteric. PERRL. NECK: Supple, no masses, no JVD. CHEST: Clear to auscultation bilaterally. Good air movement. CARDIAC: Regular rhythm, S1, S2. ABDOMEN: Soft, nontender, nondistended. Normoactive bowel sounds in 4 quadrants. No mass or bruits. EXTREMITIES: Trace edema. Good pulses. SKIN: Warm, dry, and intact. No rashes. NEUROLOGIC: Nonfocal. LABORATORY AND DIAGNOSTIC DATA: Chest x-ray on 03/29 reveals no acute abnormality. EKG shows sinus rhythm, right bundle branch block, left anterior fascicular block. LABORATORY DATA: Hemoglobin is 17.2, hematocrit 50.7, platelets 194. WBC is 9.3. The patient has been on IV heparin. Troponin is 0.1 to 0.3. Creatinine started at 2, now is 1.8. LDL is 159, trigcylcerides 153, glucose is 133. ASSESSMENT AND PLAN: In summary, the patient is a 51-year-old -[place]ic gentleman. 1. Chest pain with typical and atypical features, now resolved in the milieu of hypertensive emergency, diabetes, obesity and medication noncompliance, also now with acute kidney injury, likely due to longstanding hypertension, baseline is unknown. At this point, we will discontinue losartan, start baby aspirin. We will follow up echocardiogram. Check nuclear stress test. Nephrology consultation for elevated creatinine in the setting of uncontrolled hypertension. As far as his hypertension is concerned, again, we will stop losartan, will continue nifedipine, carvedilol and we will add Imdur. A long discussion regarding the importance of compliance and so forth. Discontinue IV heparin and start subcutaneous heparin. The patient is clinically stable at this point, we will continue to follow. Thank you for this consultation. TID: [id number] RECEIPT: [id number] LISA/ROSS/ERAN
[2022-04-01] MEDS: HEPARIN 5,000 UNIT/1 ML VIAL SUB-Q SCH ×3 (06:10→21:54)
[2022-04-01 07:09] LABS: Hematocrit 53.7 % (35.5-45.6); Hemoglobin 17.5 gm/dl (11.8-15.2)
[2022-04-01 07:26] LABS: Calcium 9.7 mg/dL (8.4-10.2)
[2022-04-01] MEDS: NIFEdipine XL 90 MG TAB PO SCH ×2 (09:11→21:53)
[2022-04-01] MEDS: ASPIRIN 325 MG TAB PO SCH (09:13)
[2022-04-01] MEDS: carvediloL 12.5 MG TAB PO SCH ×2 (09:13→21:54)
[2022-04-01] MEDS: FAMOTIDINE 20 MG TAB PO SCH ×2 (09:13→21:54)
--- NOTE | 2022-04-01 10:06 | Progress Note ---
Assessment and Plan - Patient Problems (1) Chronic kidney disease, stage 3a Current Visit: Yes Status: Acute Plan to address problem: Suspect chronic kidney disease secondary to hypertensive nephrosclerosis. It is unclear if patient has any acute exacerbation. Renal US was unremarkable, no hydronephrosis seen. Stressed importance of keeping blood pressure controlled and keeping to moderate protein diet to decrease/slow progression of chronic kid tha disease. Follow-up electrolytes and renal function (2) Acute chest pain Current Visit: Yes Status: Acute Plan to address problem: For stress test tomorrow per cardiology (3) Hypertensive urgency Current Visit: Yes Status: Acute Plan to address problem: Blood pressure is uncontrolled despite current medications. Adjust medications on follow-up blood pressure. Subjective Date of service: 04/01/22 Principal diagnosis: Hypertensive emergency, NSTEMI, WILLIAM Interval history: Patient awake, alert, in no acute distress Objective - Vital Signs Vital signs: Vital Signs - 12hr 03/31/22 03/31/22 04/01/22 22:17 23:49 03:00 Temperature 98.7 F Pulse Rate 81 78 74 Respiratory 14 Rate Blood Pressure 158/97 139/96 O2 Sat by Pulse 98 Oximetry 04/01/22 04/01/22 03:52 08:53 Temperature 98.2 F 98.8 F Pulse Rate 69 81 Respiratory 14 Rate Blood Pressure 145/95 156/107 O2 Sat by Pulse 98 97 Oximetry - General Appearance General appearance: well-developed, well-nourished, appears stated age EENT: ATNC, PERRL, mucous membranes moist Neck: no JVD Respiratory: Present: Clear to Ascultation Cardiology: regular, S1S2 Gastrointestinal: normoactive bowel sounds Integumentary: no rash, other (no edema ) Neurologic: no focal deficit, alert and oriented x3, gait normal, CN 3-12 intact Psychiatric: mood/affect appropriate, cooperative - Lab 04/01/22 06:56 04/01/22 06:56 Most recent lab results Calcium 9.7 mg/dL (8.4-10.2) 04/01/22 06:56 Magnesium 2.40 mg/dL (1.7-2.3) H 04/01/22 06:56 Medications & Allergies - Medications Allergies/Adverse Reactions: Allergies No Known Allergies Allergy (Verified 06/06/19 18:57) Home Medications: Home Medications Medication Instructions Recorded Confirmed Last Taken Type No Known Home Medications [No 03/30/22 03/30/22 Unknown History Reported Home Medications] Active Medications: Generic Name Dose Route Start Last Admin Trade Name Siddharthaq PRN Reason Stop Dose Admin Acetaminophen 650 mg 03/29/22 11:31 03/30/22 19:48 Acetaminophen 325 Mg Tab PO 650 mg Q4H PRN Administration Pain MILD(1-3)/Fever >100.5/DUARTE Aspirin 325 mg 03/31/22 11:00 04/01/22 09:13 Aspirin 325 Mg Tab PO 325 mg QDAY GIANNA Administration Carvedilol 12.5 mg 03/29/22 22:00 04/01/22 09:13 Carvedilol 12.5 Mg Tab PO 12.5 mg Q12HR GIANNA Administration Cyclobenzaprine HCl 10 mg 03/29/22 11:28 03/30/22 19:49 Cyclobenzaprine 10 Mg Tab PO 10 mg TID PRN Administration Muscle Spasm Famotidine 20 mg 03/29/22 12:00 04/01/22 09:13 Famotidine 20 Mg Tab PO 20 mg BID GIANNA Administration Heparin Sodium (Porcine) 5,000 unit 03/31/22 14:00 04/01/22 06:10 Heparin 5,000 Unit/1 Ml Vial SUB-Q 5,000 unit Q8HR GIANNA Administration Hydralazine HCl 10 mg 03/29/22 11:41 03/30/22 16:37 Hydralazine 20 Mg/1 Ml Inj IV 10 mg Q3H PRN Administration Blood Pressure Hydromorphone HCl 1 mg 03/29/22 11:31 Hydromorphone 1 Mg/1 Ml Inj IV Q3H PRN Pain , Severe (7-10) Isosorbide Mononitrate 30 mg 04/01/22 10:00 04/01/22 09:11 Isosorbide Mononitrate Er 30 Mg Tab PO 30 mg QDAY GIANNA Administration Morphine Sulfate 2 mg 03/29/22 11:31 Morphine 2 Mg/1 Ml Inj IV Q4H PRN Pain, Moderate (4-6) Nifedipine 60 mg 03/31/22 22:00 04/01/22 09:11 Nifedipine Xl 90 Mg Tab PO 60 mg BID GIANNA Administration Ondansetron HCl 4 mg 03/29/22 11:31 Ondansetron 4 Mg/2 Ml Inj IV Q8H PRN Nausea And Vomiting Sodium Chloride 10 ml 03/29/22 22:00 04/01/22 09:15 Sodium Chloride 0.9% 10 Ml Flush Syringe IV 10 ml BID GIANNA Administration Sodium Chloride 10 ml 03/29/22 11:31 Sodium Chloride 0.9% 10 Ml Flush Syringe IV PRN PRN LINE FLUSH
[2022-04-01] MEDS ORDERED: REGADENOSON 0.4 MG/5 ML INJ IV ONE (12:38)
--- NOTE | 2022-04-01 13:24 | Electrocardiograph Report ---
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
--- NOTE | 2022-04-01 13:29 | Electrocardiograph Report ---
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
--- NOTE | 2022-04-01 14:23 | Progress Note ---
Assessment and Plan Patient is a 51-year-old male past medical history of hypertension and obesity who presented to the ED with a complaint of sharp chest pain Hypertensive emergency Atypical chest pain Diabetes Obesity Medication noncompliance WILLIAM-nephrology follow Plan: Patient remains chest pain-free Patient for stress test and echo this a.m. Patient had abnormal stress test with large fixed apical defect. We will plan for cardiac cath in the a.m. Patient to be n.p.o. after midnight Will hold NEFTALY or ARB due to WILLIAM Currently on aspirin, Coreg, nifedipine, and Imdur Patient seen in conjunction with Dr. Andrew who agrees with this plan of care - Patient Problems (1) Medical non-compliance Current Visit: Yes Status: Acute (2) WILLIAM (acute kidney injury) Current Visit: Yes Status: Acute (3) Acute chest pain Current Visit: Yes Status: Acute (4) Chronic kidney disease, stage 3a Current Visit: Yes Status: Acute (5) Hypertensive emergency Current Visit: Yes Status: Acute (6) NSTEMI (non-ST elevated myocardial infarction) Current Visit: Yes Status: Acute Subjective Date of service: 04/01/22 Principal diagnosis: Hypertensive emergency, NSTEMI, WILLIAM Interval history: Patient for stress test this a.m. Patient reports being chest pain-free Patient monitor previously sinus 60s Objective Vital Signs Temp Pulse Resp BP Pulse Ox 04/01/22 10:00 97 04/01/22 08:53 98.8 F 81 156/107 97 04/01/22 03:52 98.2 F 69 14 145/95 98 04/01/22 03:00 74 03/31/22 23:49 98.7 F 78 14 139/96 98 03/31/22 22:17 81 158/97 03/31/22 22:00 98 03/31/22 19:27 98.8 F 81 16 158/97 97 03/31/22 16:04 97.9 F 75 18 141/92 95 03/31/22 15:10 78 98 - Physical Examination General: No Apparent Distress HEENT: Positive: PERRL, Normocephaly Neck: Positive: trachea midline Cardiac: Positive: Reg Rate and Rhythm Lungs: Positive: Normal Breath Sounds Neuro: Positive: Grossly Intact Abdomen: Positive: Soft Skin: Negative: Rash, Suspicious Lesions, Ulceration Extremities: Present: upper extr. pulses. Absent: edema - Labs and Meds CBC 04/01/22 Range/Units 06:56 Hgb 17.5 H (11.8-15.2) gm/dl Hct 53.7 H (35.5-45.6) % Plt Count 196 (140-440) K/mm3 Comprehensive Metabolic Panel 04/01/22 Range/Units 06:56 Sodium 140 (137-145) mmol/L Potassium 4.9 (3.6-5.0) mmol/L Chloride 105.3 (98-107) mmol/L Carbon Dioxide 22 (22-30) mmol/L BUN 23 H (9-20) mg/dL Creatinine 1.8 H (0.8-1.3) mg/dL Glucose 117 H (75-100) mg/dL Calcium 9.7 (8.4-10.2) mg/dL - Imaging and Cardiology EKG: report reviewed (LVH by voltage criteria, no acute ST-T wave changes, right bundle branch block) - Telemetry EKG Rhythm: Sinus Rhythm - EKG Sinus rhythms and dysrhythmias: sinus rhythm
[2022-04-01] MEDS ORDERED: SODIUM CHLORIDE 0.9% 500 ML 500 ML IV SCH (16:00)
[2022-04-02 04:56] LABS: Basophils # (Auto) 0.1 K/mm3 (0.0-0.1); Basophils % (Auto) 0.4 % (0.0-1.8); Eosinophils # (Auto) 0.2 K/mm3 (0.0-0.4); Eosinophils % (Auto) 1.5 % (0.0-4.3); Hematocrit 48.8 % (35.5-45.6); Hemoglobin 16.3 gm/dl (11.8-15.2); Lymphocytes # (Auto) 2.2 K/mm3 (1.2-5.4); Lymphocytes % (Auto) 17.6 % (13.4-35.0); Mean Corpuscular HGB Conc 33 % (32-34); Mean Corpuscular Volume 88 fl (84-94); Monocytes # (Auto) 1.2 K/mm3 (0.0-0.8); Monocytes % (Auto) 9.6 % (0.0-7.3); Platelet Count 197 K/mm3 (140-440); Red Blood Count 5.52 M/mm3 (3.65-5.03); Red Cell Distribution Width 14.9 % (13.2-15.2)
[2022-04-02 05:08] LABS: Calcium 8.8 mg/dL (8.4-10.2)
[2022-04-02 05:10] LABS: INR 0.9 (0.87-1.13)
[2022-04-02] MEDS: HEPARIN 5,000 UNIT/1 ML VIAL SUB-Q SCH ×3 (05:59→21:55)
[2022-04-02] MEDS: NIFEdipine XL 90 MG TAB PO SCH ×2 (09:13→21:56)
[2022-04-02] MEDS: FAMOTIDINE 10 MG TAB PO SCH ×2 (09:14→21:55)
[2022-04-02] MEDS: ASPIRIN 325 MG TAB PO SCH (09:14)
[2022-04-02] MEDS: carvediloL 12.5 MG TAB PO SCH ×2 (09:15→21:55)
[2022-04-02] MEDS: SODIUM CHLORIDE 0.9% 1000 ML 1,000 ML IV SCH ×2 (09:18→17:23)
--- NOTE | 2022-04-02 10:23 | Progress Note ---
Assessment and Plan - Patient Problems (1) Chronic kidney disease, stage 3a Current Visit: Yes Status: Acute Plan to address problem: Suspect chronic kidney disease secondary to hypertensive nephrosclerosis. It is unclear if patient has any acute exacerbation. Renal US was unremarkable, no hydronephrosis seen. Stressed importance of keeping blood pressure controlled and keeping to moderate protein diet to decrease/slow progression of chronic kid tha disease. Cr increased to 2.3mg/dl today, will cont IV hydration with NS, if Cr trends back down to less than 2mg/dl, patient would be cleared for cardiac cath from renal stand point with IVF prophylaxis. (2) Acute chest pain Current Visit: Yes Status: Acute Plan to address problem: management as per cardiology, plan for cath once renal function stabilizes (3) Hypertensive urgency Current Visit: Yes Status: Acute Plan to address problem: Blood pressure is uncontrolled despite current medications. Adjust medications on follow-up blood pressure. Subjective Date of service: 04/02/22 Principal diagnosis: Hypertensive emergency, NSTEMI, WILLIAM Interval history: Patient awake, alert, in no acute distress Objective - Vital Signs Vital signs: Vital Signs - 12hr 04/01/22 04/02/22 04/02/22 23:34 03:00 03:40 Temperature 98.6 F 98.4 F Pulse Rate 77 79 82 Respiratory 16 16 Rate Blood Pressure 127/85 142/95 Blood Pressure [Left] O2 Sat by Pulse 98 99 Oximetry 04/02/22 08:00 Temperature 98.2 F Pulse Rate 84 Respiratory 18 Rate Blood Pressure Blood Pressure 157/98 [Left] O2 Sat by Pulse 94 Oximetry - General Appearance General appearance: well-developed, well-nourished, appears stated age EENT: ATNC, PERRL, mucous membranes moist Neck: no JVD Respiratory: Present: Clear to Ascultation Cardiology: regular, S1S2 Gastrointestinal: normoactive bowel sounds Integumentary: no rash Neurologic: no focal deficit, alert and oriented x3, strength 5/5, CN 3-12 i ntact Psychiatric: mood/affect appropriate, cooperative - Lab 04/02/22 04:24 04/02/22 04:24 Most recent lab results Calcium 8.8 mg/dL (8.4-10.2) 04/02/22 04:24 Magnesium 2.40 mg/dL (1.7-2.3) H 04/01/22 06:56 Medications & Allergies - Medications Allergies/Adverse Reactions: Allergies No Known Allergies Allergy (Verified 06/06/19 18:57) Home Medications: Home Medications Medication Instructions Recorded Confirmed Last Taken Type No Known Home Medications [No 03/30/22 03/30/22 Unknown History Reported Home Medications] Active Medications: Generic Name Dose Route Start Last Admin Trade Name Freq PRN Reason Stop Dose Admin Acetaminophen 650 mg 03/29/22 11:31 03/30/22 19:48 Acetaminophen 325 Mg Tab PO 650 mg Q4H PRN Administration Pain MILD(1-3)/Fever >100.5/DUARTE Aspirin 325 mg 03/31/22 11:00 04/02/22 09:14 Aspirin 325 Mg Tab PO 325 mg QDAY GIANNA Administration Carvedilol 12.5 mg 03/29/22 22:00 04/02/22 09:15 Carvedilol 12.5 Mg Tab PO 12.5 mg Q12HR GIANNA Administration Cyclobenzaprine HCl 10 mg 03/29/22 11:28 03/30/22 19:49 Cyclobenzaprine 10 Mg Tab PO 10 mg TID PRN Administration Muscle Spasm Famotidine 10 mg 04/02/22 10:00 04/02/22 09:14 Famotidine 10 Mg Tab PO 10 mg BID GIANNA Administration Heparin Sodium (Porcine) 5,000 unit 03/31/22 14:00 04/02/22 05:59 Heparin 5,000 Unit/1 Ml Vial SUB-Q 5,000 unit Q8HR GIANNA Administration Hydralazine HCl 10 mg 03/29/22 11:41 03/30/22 16:37 Hydralazine 20 Mg/1 Ml Inj IV 10 mg Q3H PRN Administration Blood Pressure Hydromorphone HCl 1 mg 03/29/22 11:31 Hydromorphone 1 Mg/1 Ml Inj IV Q3H PRN Pain , Severe (7-10) Sodium Chloride 1,000 mls @ 75 mls/hr 04/01/22 17:45 04/02/22 09:18 Nacl 0.9% 1000 Ml IV 50 mls/hr DIRECT GIANNA Administration Isosorbide Mononitrate 30 mg 04/01/22 10:00 04/02/22 09:15 Isosorbide Mononitrate Er 30 Mg Tab PO 30 mg QDAY GIANNA Administration Morphine Sulfate 2 mg 03/29/22 11:31 Morphine 2 Mg/1 Ml Inj IV Q4H PRN Pain, Moderate (4-6) Nifedipine 60 mg 03/31/22 22:00 04/02/22 09:13 Nifedipine Xl 90 Mg Tab PO 60 mg BID GIANNA Administration Ondansetron HCl 4 mg 03/29/22 11:31 Ondansetron 4 Mg/2 Ml Inj IV Q8H PRN Nausea And Vomiting Sodium Chloride 10 ml 03/29/22 22:00 04/02/22 09:16 Sodium Chloride 0.9% 10 Ml Flush Syringe IV 10 ml BID GIANNA Administration Sodium Chloride 10 ml 03/29/22 11:31 Sodium Chloride 0.9% 10 Ml Flush Syringe IV PRN PRN LINE FLUSH
--- NOTE | 2022-04-02 10:27 | Electrocardiograph Report ---
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
--- NOTE | 2022-04-02 12:17 | Progress Note ---
Assessment and Plan - Patient Problems (1) NSTEMI (non-ST elevated myocardial infarction) Current Visit: Yes Status: Acute Plan to address problem: [ Patient had abnormal stress test with large fixed apical defect. Cardiology will plan for cardiac cath in the a.m. Patient to be n.p.o. after midnight Will hold NEFTALY or ARB due to WILLIAM (2) Hypertensive emergency Current Visit: Yes Status: Acute Plan to address problem: Patient initiated on antihypertensives Nifedipine and carvedilol IV hydralazine as needed (3) WILLIAM (acute kidney injury) Current Visit: Yes Status: Acute Plan to address problem: Nephrology consult requested (4) DVT prophylaxis Current Visit: Yes Status: Acute Plan to address problem: On anticoagulation GI prophylaxis. (5) Advance care planning Current Visit: Yes Status: Acute Plan to address problem: Disease education conducted, care plan discussed, diagnosis discussed, prognosis discussed. Patient is full code. Patient acknowledged understanding and agreement with care plan. +30 minutes. Subjective Date of service: 04/01/22 Principal diagnosis: Hypertensive emergency, NSTEMI, WILLIAM Interval history: 51-year-old -[place] male with history of hypertension comes in for chest pain since a.m. Chest pain is retrosternal. Nonradiating. No diaphoresis. No shortness of breath. Patient has not been taking his blood pressure medications for the last couple of months. Patient usually goes to [facility]. Chest pain is nonradiating. No exacerbating or relieving factors. In the emergency room patient blood pressure was very high. Blood pressure was 204/108. Patient being admitted for hypertensive emergency acute pain. 03/30/2022 Chest pain improved On IV heparin drip Cardiology consult appreciated Nephrology consult appreciated 03/31/2022 Heparin drip stopped after discussing with cardiology Patient for stress test in the morning 04/01/2022 Patient had Lexiscan this morning Shows ischemia Patient had abnormal stress test with large fixed apical defect. Cardiology wi ll plan for cardiac cath in the a.m. Patient to be n.p.o. after midnight Will hold NEFTALY or ARB due to WILLIAM Objective - Constitutional Vitals: Vital Signs - 12hr 04/02/22 04/02/22 04/02/22 03:00 03:40 08:00 Temperature 98.4 F 98.2 F Pulse Rate 79 82 84 Respiratory 16 18 Rate Blood Pressure 142/95 Blood Pressure 157/98 [Left] O2 Sat by Pulse 99 94 Oximetry 04/02/22 11:35 Temperature 98.0 F Pulse Rate 74 Respiratory 18 Rate Blood Pressure 136/96 Blood Pressure [Left] O2 Sat by Pulse 97 Oximetry General appearance: Present: no acute distress, well-nourished - EENT Eyes: PERRL, EOM intact ENT: hearing intact, clear oral mucosa Ears: bilateral: normal - Neck Neck: supple, normal ROM - Respiratory Respiratory effort: normal Respiratory: bilateral: CTA - Breasts Breasts: normal - Cardiovascular Heart rate: 78 Rhythm: regular Heart Sounds: Present: S1 & S2. Absent: gallop, rub Extremities: pulses intact, No edema, normal color, Full ROM - Gastrointestinal General gastrointestinal: Present: soft, non-tender, non-distended, normal bowel sounds - Genitourinary Male genitourinary: normal - Integumentary Integumentary: clear, warm, dry - Musculoskeletal Musculoskeletal: 1, strength equal bilaterally - Neurologic Neurologic: moves all extremities - Psychiatric Psychiatric: memory intact, appropriate mood/affect, intact judgment & insight - Labs CBC & Chem 7: 04/03/22 05:24 04/03/22 05:24 Labs: Abnormal lab results 04/02/22 04/02/22 Range/Units 04:24 04:24 WBC 12.3 H (4.5-11.0) K/mm3 RBC 5.52 H (3.65-5.03) M/mm3 Hgb 16.3 H (11.8-15.2) gm/dl Hct 48.8 H (35.5-45.6) % [place] % (Auto) 9.6 H (0.0-7.3) % [place] # (Auto) 1.2 H (0.0-0.8) K/mm3 Seg Neutrophils % 70.9 H (40.0-70.0) % Seg Neutrophils # 8.7 H (1.8-7.7) K/mm3 Carbon Dioxide 21 L (22-30) mmol/L BUN 30 H (9-20) mg/dL Creatinine 2.3 H (0.8-1.3) mg/dL Glucose 133 H (75-100) mg/dL HEART Score - HEART Score EKG: Non-specific Age: 45-65 Risk factors: > 3 risk factors or hx of atherosclerotic disease Troponin: Troponin T 0.330 ng/mL (0.00-0.029) H* D 03/30/22 20:57 Troponin: < normal limit - Critical Actions Critical Actions: 4-6 pts:12-16.6% risk of adverse cardiac event. Should be admitted
[2022-04-02] MEDS ORDERED: SODIUM CHLORIDE 0.9% 500 ML 500 ML IV SCH (14:00)
--- NOTE | 2022-04-02 14:01 | Progress Note ---
Assessment and Plan Patient is a 51-year-old male past medical history of hypertension and obesity who presented to the ED with a complaint of sharp chest pain Hypertensive emergency Atypical chest pain Cardiomyopathy HFrEF Diabetes Obesity Medication noncompliance WILLIAM-nephrology follow Echocardiogram 04/01/2022-EF 20%. Moderate to severe concentric LVH. Left ventricle is moderately dilated. Severe global hypokinesis of LV mild diastolic dysfunction is present impaired luxation pattern right ventricle is hypokinetic. No pericardial effusion Plan: Patient had abnormal stress test with large fixed apical defect Patient remains chest pain-free Cardiac cath canceled this a.m. due to rising creatinine Will plan for cardiac cath in the a.m pending creatinine. Patient to be n.p.o. after midnight Will hold NEFTALY or ARB due to WILLIAM Currently on aspirin, Coreg, nifedipine, and Imdur Discussed plan of care with patient who verbalized understanding and acknowledgment Patient seen in conjunction with Dr. Andrew who agrees with this plan of care - Patient Problems (1) Medical non-compliance Current Visit: Yes Status: Acute (2) WILLIAM (acute kidney injury) Current Visit: Yes Status: Acute (3) Acute chest pain Current Visit: Yes Status: Acute (4) Chronic kidney disease, stage 3a Current Visit: Yes Status: Acute (5) Hypertensive emergency Current Visit: Yes Status: Acute (6) NSTEMI (non-ST elevated myocardial infarction) Current Visit: Yes Status: Acute Subjective Date of service: 04/02/22 Principal diagnosis: Hypertensive emergency, NSTEMI, WILLIAM Interval history: Patient sitting in chair in no acute distress. Patient continues to report being chest pain-free Patient underwent telemetry monitoring Objective Vital Signs Temp Pulse Resp BP BP Pulse Ox 04/02/22 11:35 98.0 F 74 18 136/96 97 04/02/22 10:00 96 04/02/22 08:00 98.2 F 84 18 157/98 94 04/02/22 03:40 98.4 F 82 16 142/95 99 04/02/22 03:00 79 04/01/22 23:34 98.6 F 77 16 127/85 98 04/01/22 22:00 98 04/01/22 21:54 84 132/96 04/01/22 19:54 99.0 F 84 18 132/96 98 04/01/22 15:21 98.4 F 81 144/91 96 - Physical Examination General: No Apparent Distress HEENT: Positive: PERRL, Normocephaly Neck: Positive: trachea midline Cardiac: Positive: Reg Rate and Rhythm Lungs: Positive: Normal Breath Sounds Neuro: Positive: Grossly Intact Abdomen: Positive: Soft Skin: Negative: Rash, Suspicious Lesions, Ulceration Extremities: Present: upper extr. pulses. Absent: edema - Labs and Meds Coagulation 04/02/22 Range/Units 04:24 PT 13.1 (12.2-14.9) Sec. INR 0.90 (0.87-1.13) CBC 04/02/22 Range/Units 04:24 WBC 12.3 H (4.5-11.0) K/mm3 RBC 5.52 H (3.65-5.03) M/mm3 Hgb 16.3 H (11.8-15.2) gm/dl Hct 48.8 H (35.5-45.6) % Plt Count 197 (140-440) K/mm3 Lymph # (Auto) 2.2 (1.2-5.4) K/mm3 [place] # (Auto) 1.2 H (0.0-0.8) K/mm3 Eos # (Auto) 0.2 (0.0-0.4) K/mm3 Baso # (Auto) 0.1 (0.0-0.1) K/mm3 Comprehensive Metabolic Panel 04/02/22 Range/Units 04:24 Sodium 138 (137-145) mmol/L Potassium 4.1 (3.6-5.0) mmol/L Chloride 102.2 (98-107) mmol/L Carbon Dioxide 21 L (22-30) mmol/L BUN 30 H (9-20) mg/dL Creatinine 2.3 H (0.8-1.3) mg/dL Glucose 133 H (75-100) mg/dL Calcium 8.8 (8.4-10.2) mg/dL - Imaging and Cardiology EKG: report reviewed (LVH by voltage criteria, no acute ST-T wave changes, right bundle branch block) - Telemetry EKG Rhythm: Sinus Rhythm - EKG Sinus rhythms and dysrhythmias: sinus rhythm
[2022-04-03] MEDS: HEPARIN 5,000 UNIT/1 ML VIAL SUB-Q SCH ×2 (05:33→15:11)
[2022-04-03 06:02] LABS: Basophils # (Auto) 0.1 K/mm3 (0.0-0.1); Basophils % (Auto) 0.6 % (0.0-1.8); Eosinophils # (Auto) 0.2 K/mm3 (0.0-0.4); Eosinophils % (Auto) 1.8 % (0.0-4.3); Hematocrit 44.6 % (35.5-45.6); Hemoglobin 14.2 gm/dl (11.8-15.2); Lymphocytes # (Auto) 1.8 K/mm3 (1.2-5.4); Lymphocytes % (Auto) 18.3 % (13.4-35.0); Mean Corpuscular HGB Conc 32 % (32-34); Mean Corpuscular Volume 90 fl (84-94); Monocytes # (Auto) 1.1 K/mm3 (0.0-0.8); Monocytes % (Auto) 11.2 % (0.0-7.3); Platelet Count 172 K/mm3 (140-440); Red Blood Count 4.94 M/mm3 (3.65-5.03); Red Cell Distribution Width 14.8 % (13.2-15.2)
[2022-04-03 06:14] LABS: INR 0.9 (0.87-1.13)
[2022-04-03 06:17] LABS: Calcium 8.7 mg/dL (8.4-10.2)
--- NOTE | 2022-04-03 07:29 | Progress Note ---
Assessment and Plan - Patient Problems (1) NSTEMI (non-ST elevated myocardial infarction) Current Visit: Yes Status: Acute Plan to address problem: For cath tomorrow after clearance by nephrology (2) Hypertensive emergency Current Visit: Yes Status: Acute Plan to address problem: Blood pressure better controlled (3) WILLIAM (acute kidney injury) Current Visit: Yes Status: Acute Plan to address problem: Nephrology consult appreciated Creatinine at 2.3 Cardiac cath tomorrow if creatinine stabilizes and cleared by nephrology (4) DVT prophylaxis Current Visit: Yes Status: Acute Plan to address problem: On anticoagulation GI prophylaxis. (5) Advance care planning Current Visit: Yes Status: Acute Plan to address problem: Disease education conducted, care plan discussed, diagnosis discussed, prognosis discussed. Patient is full code. Patient acknowledged understanding and agreement with care plan. +30 minutes. Subjective Date of service: 04/02/22 Principal diagnosis: Hypertensive emergency, NSTEMI, WILLIAM Interval history: 51-year-old -[place] male with history of hypertension comes in for chest pain since a.m. Chest pain is retrosternal. Nonradiating. No d iaphoresis. No shortness of breath. Patient has not been taking his blood pressure medications for the last couple of months. Patient usually goes to [facility]. Chest pain is nonradiating. No exacerbating or relieving factors. In the emergency room patient blood pressure was very high. Blood pressure was 204/108. Patient being admitted for hypertensive emergency acute pain. 03/30/2022 Chest pain improved On IV heparin drip Cardiology consult appreciated Nephrology consult appreciated 03/31/2022 Heparin drip stopped after discussing with cardiology Patient for stress test in the morning 04/01/2022 Patient had Lexiscan this morning Shows ischemia Patient had abnormal stress test with large fixed apical defect. Cardiology will plan for cardiac cath in the a.m. Patient to be n.p.o. after midnight Will hold NEFTALY or ARB due to WILLIAM April 02, 2022 Cardiac catheter postponed to tomorrow because of the creatinine of 2 IV fluids Objective - Constitutional Vitals: Vital Signs - 12hr 04/02/22 04/02/22 04/02/22 19:34 22:00 23:52 Temperature 98.1 F 98.8 F Pulse Rate 81 69 Pulse Rate [ 81 Left Radial] Respiratory 18 18 19 Rate Blood Pressure 140/96 136/90 O2 Sat by Pulse 96 96 99 Oximetry 04/03/22 03:45 Temperature 98.2 F Pulse Rate 75 Pulse Rate [ Left Radial] Respiratory 18 Rate Blood Pressure 137/88 O2 Sat by Pulse 99 Oximetry General appearance: Present: no acute distress, well-nourished - EENT Eyes: PERRL, EOM intact ENT: hearing intact, clear oral mucosa Ears: bilateral: normal - Neck Neck: supple, normal ROM - Respiratory Respiratory effort: normal Respiratory: bilateral: CTA - Breasts Breasts: normal - Cardiovascular Heart rate: 78 Rhythm: regular Heart Sounds: Present: S1 & S2. Absent: gallop, rub Extremities: pulses intact, No edema, normal color, Full ROM - Gastrointestinal General gastrointestinal: Present: soft, non-tender, non-distended, normal bowel sounds - Genitourinary Male genitourinary: normal - Integumentary Integumentary: clear, warm, dry - Musculoskeletal Musculoskeletal: 1, strength equal bilaterally - Neurologic Neurologic: moves all extremities - Psychiatric Psychiatric: memory intact, appropriate mood/affect, intact judgment & insight - Labs CBC & Chem 7: 04/03/22 05:24 04/03/22 05:24 Labs: Abnormal lab results 04/03/22 04/03/22 Range/Units 05:24 05:24 [place] % (Auto) 11.2 H (0.0-7.3) % [place] # (Auto) 1.1 H (0.0-0.8) K/mm3 Carbon Dioxide 20 L (22-30) mmol/L BUN 28 H (9-20) mg/dL Creatinine 2.0 H (0.8-1.3) mg/dL HEART Score - HEART Score EKG: Non-specific Age: 45-65 Risk factors: > 3 risk factors or hx of atherosclerotic disease Troponin: Troponin T 0.330 ng/mL (0.00-0.029) H* D 03/30/22 20:57 Troponin: < normal limit - Critical Actions Critical Actions: 4-6 pts:12-16.6% risk of adverse cardiac event. Should be admitted
--- NOTE | 2022-04-03 09:32 | Progress Note ---
Assessment and Plan - Patient Problems (1) Chronic kidney disease, stage 3a Current Visit: Yes Status: Acute Plan to address problem: Suspect chronic kidney disease secondary to hypertensive nephrosclerosis. It is unclear if patient has any acute exacerbation. Renal US was unremarkable, no hydronephrosis seen. Stressed importance of keeping blood pressure controlled and keeping to moderate protein diet to decrease/slow progression of chronic kid tha disease.Cr improved to 2mg/dl with IVF, renal function is close to baseline, with IVF prophylaxis and using isoosmolar IV contrast, risk contrast induced nephropathy is low. pt is cleared for cardiac cath from renal stand point. (2) Acute chest pain Current Visit: Yes Status: Acute Plan to address problem: management as per cardiology, plan for cath once renal function stabilizes (3) Hypertensive urgency Current Visit: Yes Status: Acute Plan to address problem: Blood pressure is uncontrolled despite current medications. Adjust medications on follow-up blood pressure. Subjective Date of service: 04/03/22 Principal diagnosis: Hypertensive emergency, NSTEMI, WILLIAM Interval history: Patient awake, alert, in no acute distress Objective - Vital Signs Vital signs: Vital Signs - 12hr 04/02/22 04/02/22 04/03/22 22:00 23:52 03:45 Temperature 98.8 F 98.2 F Pulse Rate 69 75 Pulse Rate [ 81 Left Radial] Respiratory 18 19 18 Rate Blood Pressure 136/90 137/88 O2 Sat by Pulse 96 99 99 Oximetry 04/03/22 08:22 Temperature 98.3 F Pulse Rate 76 Pulse Rate [ Left Radial] Respiratory 18 Rate Blood Pressure 145/103 O2 Sat by Pulse 98 Oximetry - General Appearance General appearance: well-developed, well-nourished, appears stated age EENT: ATNC, PERRL, mucous membranes moist Neck: no JVD Respiratory: Present: Clear to Ascultation Cardiology: regular, S1S2 Gastrointestinal: normoactive bowel sounds Integumentary: no rash Neurologic: no focal deficit, alert and oriented x3, strength 5/5, CN 3-12 intact Psychiatric: mood/affect appropriate, cooperative - Lab 04/03/22 05:24 04/03/22 05:24 Most recent lab results Calcium 8.7 mg/dL (8.4-10.2) 04/03/22 05:24 Magnesium 2.40 mg/dL (1.7-2.3) H 04/01/22 06:56 Medications & Allergies - Medications Allergies/Adverse Reactions: Allergies No Known Allergies Allergy (Verified 06/06/19 18:57) Home Medications: Home Medications Medication Instructions Recorded Confirmed Last Taken Type No Known Home Medications [No 03/30/22 03/30/22 Unknown History Reported Home Medications] Active Medications: Generic Name Dose Route Start Last Admin Trade Name Freq PRN Reason Stop Dose Admin Acetaminophen 650 mg 03/29/22 11:31 03/30/22 19:48 Acetaminophen 325 Mg Tab PO 650 mg Q4H PRN Administration Pain MILD(1-3)/Fever >100.5/DUARTE Aspirin 325 mg 03/31/22 11:00 04/02/22 09:14 Aspirin 325 Mg Tab PO 325 mg QDAY GIANNA Administration Carvedilol 12.5 mg 03/29/22 22:00 04/02/22 21:55 Carvedilol 12.5 Mg Tab PO 12.5 mg Q12HR GIANAN Administration Cyclobenzaprine HCl 10 mg 03/29/22 11:28 03/30/22 19:49 Cyclobenzaprine 10 Mg Tab PO 10 mg TID PRN Administration Muscle Spasm Famotidine 10 mg 04/02/22 10:00 04/02/22 21:55 Famotidine 10 Mg Tab PO 10 mg BID GIANNA Administration Heparin Sodium (Porcine) 5,000 unit 03/31/22 14:00 04/03/22 05:33 Heparin 5,000 Unit/1 Ml Vial SUB-Q 5,000 unit Q8HR GIANNA Administration Hydralazine HCl 10 mg 03/29/22 11:41 03/30/22 16:37 Hydralazine 20 Mg/1 Ml Inj IV 10 mg Q3H PRN Administration Blood Pressure Hydromorphone HCl 1 mg 03/29/22 11:31 Hydromorphone 1 Mg/1 Ml Inj IV Q3H PRN Pain , Severe (7-10) Sodium Chloride 1,000 mls @ 75 mls/hr 04/01/22 17:45 04/02/22 17:23 Nacl 0.9% 1000 Ml IV 50 mls/hr DIRECT GIANNA Administration Isosorbide Mononitrate 30 mg 04/01/22 10:00 04/02/22 09:15 Isosorbide Mononitrate Er 30 Mg Tab PO 30 mg QDAY GIANNA Administration Morphine Sulfate 2 mg 03/29/22 11:31 Morphine 2 Mg/1 Ml Inj IV Q4H PRN Pain, Moderate (4-6) Nifedipine 60 mg 03/31/22 22:00 04/02/22 21:56 Nifedipine Xl 90 Mg Tab PO 60 mg BID GIANNA Administration Ondansetron HCl 4 mg 03/29/22 11:31 Ondansetron 4 Mg/2 Ml Inj IV Q8H PRN Nausea And Vomiting Sodium Chloride 10 ml 03/29/22 22:00 04/02/22 21:56 Sodium Chloride 0.9% 10 Ml Flush Syringe IV 10 ml BID GIANNA Administration Sodium Chloride 10 ml 03/29/22 11:31 Sodium Chloride 0.9% 10 Ml Flush Syringe IV PRN PRN LINE FLUSH
[2022-04-03] MEDS: ASPIRIN 325 MG TAB PO SCH (10:00)
[2022-04-03] MEDS ORDERED: HEPARIN/NS 5000 UNIT/500ML 1,000 ML IR ONE (10:02)
[2022-04-03] MEDS: SODIUM CHLORIDE 0.9% 1000 ML 1,000 ML IV SCH (10:08)
[2022-04-03] MEDS ORDERED: MIDAZOLAM 2 MG/2 ML INJ ONE (10:41)
[2022-04-03] MEDS ORDERED: fentaNYL 100 MCG/2 ML INJ ONE (10:42)
[2022-04-03] MEDS: NITROGLYCERIN SYRINGE 3 ML ONE ×2 (10:54→11:05)
[2022-04-03] MEDS: LIDOCAINE (2%) 20 MG/1 ML VIAL 50 ML MDV INFILTRATI ONE ×2 (10:55→11:03)
[2022-04-03] MEDS: HEPARIN 10,000 UNITS/10 ML VIAL ONE ×2 (10:55→11:05)
[2022-04-03] MEDS: VERAPAMIL 5 MG/2 ML INJ ONE ×2 (10:55→11:05)
[2022-04-03] MEDS ORDERED: traMADol 50 MG TAB PO PRN (11:45)
[2022-04-03] MEDS ORDERED: HYDROcodone/ACETAMINOPHEN 5-325 MG TAB PO PRN (11:45)
--- NOTE | 2022-04-03 11:55 | Progress Note ---
Assessment and Plan Patient is a 51-year-old male past medical history of hypertension and obesity who presented to the ED with a complaint of sharp chest pain Hypertensive emergency Atypical chest pain Nonischemic cardiomyopathy HFrEF Diabetes Obesity Medication noncompliance WILLIAM-nephrology follow Echocardiogram 04/01/2022-EF 20%. Moderate to severe concentric LVH. Left ventricle is moderately dilated. Severe global hypokinesis of LV mild diastolic dysfunction is present impaired luxation pattern right ventricle is hypokinetic. No pericardial effusion Cardiac cath 04/03/2022-small vessel disease with very distal periapical LAD stenosis of approximately 90% small vessel medical management, 25% mid left circumflex stenosis. Mild to moderate global left ventricular hypokinesis Plan: Patient for cardiac cath this a.m. and tolerated procedure well with no complications Patient found to have minimal epicardial coronary artery disease with small vessel disease. Findings consistent with nonischemic cardiomyopathy see full cath report for full details Will hold NEFTALY or ARB due to WILLIAM Currently on aspirin, Coreg, nifedipine, and Imdur Discussed plan of care with patient who verbalized understanding and acknowledgment Cardiac status otherwise stable Patient patient has a follow-up appointment with [facility] 04/12/2022 at 2:15 pm. Patient follow with Dr. Andrew, [facility] clinical education specialist, 05/10/2022 at 2:30pm at our [place] location. Phone #[phone] Patient seen in conjunction with Dr. Andrew who agrees with this plan of care - Patient Problems (1) Medical non-compliance Current Visit: Yes Status: Acute (2) WILLIAM (acute kidney injury) Current Visit: Yes Status: Acute (3) Acute chest pain Current Visit: Yes Status: Acute (4) Chronic kidney disease, stage 3a Current Visit: Yes Status: Acute (5) Hypertensive emergency Current Visit: Yes Status: Acute (6) NSTEMI (non-ST elevated myocardial infarction) Current Visit: Yes Status: Acute Subjective Date of service: 04/03/22 Principal diagnosis: Hypertensive emergency, NSTEMI, WILLIAM Interval history: Patient for cardiac cath this a.m. Patient sinus 70s on monitor with no events Objective Vital Signs Temp Pulse Pulse Resp BP Pulse Ox 04/03/22 08:22 98.3 F 76 18 145/103 98 04/03/22 03:45 98.2 F 75 18 137/88 99 05/03/22 23:52 98.8 F 69 19 136/90 99 04/02/22 22:00 81 18 96 04/02/22 19:34 98.1 F 81 18 140/96 96 04/02/22 15:44 98.2 F 74 18 150/91 97 - Physical Examination General: No Apparent Distress HEENT: Positive: PERRL, Normocephaly Neck: Positive: trachea midline Cardiac: Positive: Reg Rate and Rhythm Lungs: Positive: Normal Breath Sounds Neuro: Positive: Grossly Intact Abdomen: Positive: Soft Skin: Negative: Rash, Suspicious Lesions, Ulceration Extremities: Present: upper extr. pulses. Absent: edema - Labs and Meds Coagulation 04/03/22 Range/Units 05:24 PT 13.1 (12.2-14.9) Sec. INR 0.90 (0.87-1.13) CBC 04/03/22 Range/Units 05:24 WBC 9.6 (4.5-11.0) K/mm3 RBC 4.94 (3.65-5.03) M/mm3 Hgb 14.2 (11.8-15.2) gm/dl Hct 44.6 (35.5-45.6) % Plt Count 172 (140-440) K/mm3 Lymph # (Auto) 1.8 (1.2-5.4) K/mm3 [place] # (Auto) 1.1 H (0.0-0.8) K/mm3 Eos # (Auto) 0.2 (0.0-0.4) K/mm3 Baso # (Auto) 0.1 (0.0-0.1) K/mm3 Comprehensive Metabolic Panel 04/03/22 Range/Units 05:24 Sodium 139 (137-145) mmol/L Potassium 4.3 (3.6-5.0) mmol/L Chloride 106.7 (98-107) mmol/L Carbon Dioxide 20 L (22-30) mmol/L BUN 28 H (9-20) mg/dL Creatinine 2.0 H (0.8-1.3) mg/dL Glucose 93 (75-100) mg/dL Calcium 8.7 (8.4-10.2) mg/dL - Imaging and Cardiology EKG: report reviewed (LVH by voltage criteria, no acute ST-T wave changes, right bundle branch block) Cardiac cath: pending - Telemetry EKG Rhythm: Sinus Rhythm - EKG Sinus rhythms and dysrhythmias: sinus rhythm
--- NOTE | 2022-04-03 13:29 | Cardiac Catherization Report ---
DATE OF PROCEDURE: 04/03/2022 CARDIAC CATHETERIZATION REFERRING PHYSICIAN: Hospitalist service. INDICATIONS FOR PROCEDURE: The patient is a pleasant 51-year-old -[place] gentleman who presented to the hospital with chest pain, shortness of breath, found to have a [id number] cardiomyopathy and significantly abnormal stress test, also has known chronic kidney disease, was cleared by Nephrology to proceed. We have hydrated him and also watched him closely from a kidney perspective. Risks, benefits, alternatives including contrast-induced nephropathy discussed with the patient at length prior to obtaining informed consent. 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 Srinivas's test in right hand is normal. A 2 mL of 2% lidocaine used to anesthetize the right wrist. A standard 6-Danish hydrophilic sheath used to cannulate the right radial artery via modified Seldinger technique. All exchanges were performed to exchange a J-tip guidewire. A JL3.5 catheter was used to engage the left main. No dampening or ventricularization. Cineangiography performed in all projections. JR4 catheter used to cross the aortic valve under fluoroscopic guidance. Left ventriculography performed in the ESCOTO and 30-degree LYNN projections via hand injections, catheter flushed. Manual pullback performed with continuous pressure monitoring. Catheter was used to engage the right coronary. No dampening or ventricularization. Cineangiography performed in all projections. I limited the dye use as much as possible. A total of 30 mL of Isovue was used. The catheter was removed from the body of wire, sheath removed. Manual pressure used to achieve hemostasis. I directly supervised the administration of moderate sedation with fentanyl and Versed from 10:50 a.m. to 11:20 a.m. No immediate complications. DATA: Aortic pressure is 150/100, LV pressure is 150, LVEDP of 12 mmHg. Left ventriculography reveals moderate global left ventricular hypokinesis, estimated ejection fraction of 40-45%. No evidence of aortic stenosis. The patient remained in normal sinus rhythm throughout the procedure. CORONARY ANATOMY: This is a right dominant system. Left main without significant disease, bifurcates into left anterior descending, left circumflex. There is a 25% mid left circumflex stenosis, JUAN C 3 flow throughout. LAD is a moderate-sized vessel, courses anterior intergroove, wraps around the apex. Small vessel disease in the very distal periapical LAD, but no other significant obstructive disease identified, JUAN C 3 flow throughout. Right coronary is a large vessel with no significant disease, it bifurcates into the PDA and posterolateral branches distally. No significant disease. JUAN C 3 flow. CONCLUSIONS: 1. Small vessel disease with very distal periapical LAD stenosis of approximately 90%, JUAN C 3 flow, small vessel medical management, 25% mid left circumflex stenosis, right dominant system. 2. Mild to moderate global left ventricular hypokinesis, estimated ejection fraction of 40-45%. 3. No evidence of aortic stenosis. 4. Normal LVEDP. These findings are consistent with a [id number] nonischemic dilated cardiomyopathy, which is well compensated. ____ coronary artery disease, medical management, statin, aspirin therapy, goal directed medical therapy for heart failure. The patient has known chronic kidney disease. Dr. Velazquez has been very helpful here. 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 Results of procedure were explained at length to the patient. All questions and concerns were addressed. TID: [id number] RECEIPT: [id number] LISA/ZAC/HALIE
[2022-04-03] MEDS: NIFEdipine XL 90 MG TAB PO SCH ×2 (15:10→18:29)
[2022-04-03] MEDS: carvediloL 12.5 MG TAB PO SCH (15:10)
[2022-04-03] MEDS: FAMOTIDINE 10 MG TAB PO SCH (15:11)
--- NOTE | 2022-04-03 15:48 | Discharge Summary ---
Providers - Providers Date of Admission: 03/29/22 11:32 Date of discharge: 04/03/22 Attending physician: STEPHANIE CISNEROS 03/30/22 12:56 Consult to Physician [CONS] Routine Comment: Consulting Provider: KECIA AREVALO Physician Instructions: Reason For Exam: NSTEMI ?? 03/31/22 10:46 Consult to Physician [CONS] Routine Comment: Consulting Provider: HERMELINDO MENG Physician Instructions: Reason For Exam: william 04/03/22 11:45 Consult to Cardiac Rehabilitation [CONS] Routine Reason For Exam: Cardiac Rehab Evaluation Primary care physician: FUEL ATTENDANT Hospitalization Condition: Good Hospital course: Subjective Date of service: 04/03/22 Principal diagnosis: Hypertensive emergency, NSTEMI, WILLIAM Interval history: 51-year-old -[place] male with history of hypertension comes in for chest pain since a.m. Chest pain is retrosternal. Nonradiating. No diaphoresis. No shortness of breath. Patient has not been taking his blood pressure medications for the last couple of months. Patient usually goes to [facility] [place]. Chest pain is nonradiating. No exacerbating or relieving factors. In the emergency room patient blood pressure was very high. Blood pressure was 204/108. Patient being admitted for hypertensive emergency acute pain. 03/30/2022 Chest pain improved On IV heparin drip Cardiology consult appreciated Nephrology consult appreciated 03/31/2022 Heparin drip stopped after discussing with cardiology Patient for stress test in the morning 04/01/2022 Patient had Lexiscan this morning Shows ischemia Patient had abnormal stress test with large fixed apical defect. Cardiology will plan for cardiac cath in the a.m. Patient to be n.p.o. after midnight Will hold NEFTALY or ARB due to WILLIAM April 02, 2022 Cardiac catheter postponed to tomorrow because of the creatinine of 2 IV fluids April 03, 2022 Cardiac cath showed small vessel disease with very distal periapical LAD stenosis of approximately 90% JUAN C-3 flow small vessel disease medical management. 25% mid left circumflex stenosis Right dominant system. Mild to moderate global left ventricular hypokinesis estimated ejection fraction of 40 to 45%. No evidence of aortic stenosis. Normal LV diastolic pressure. The these findings are consistent with mild to moderate nonischemic dilated cardiomyopathy which is well compensated. Coronary artery disease is medical management. Statins and aspirin therapy. Goal- directed medical therapy for heart failure. The patient has known chronic kidney disease. Patient to follow with cardiology and nephrology. Assessment and Plan - Patient Problems (1) NSTEMI (non-ST elevated myocardial infarction) Current Visit: Yes Status: Acute Plan to address problem: Patient had cath today. Distal disease cath results are mentioned above (2) Hypertensive emergency Current Visit: Yes Status: Acute Plan to address problem: Blood pressure better controlled Patient to be discharged on antihypertensives No NEFTALY inhibitor's or ARB's at this point. (3) WILLIAM (acute kidney injury) Current Visit: Yes Status: Acute Plan to address problem: Creatinine is 2.0 Patient has underlying chronic kidney disease (4) DVT prophylaxis Current Visit: Yes Status: Acute Plan to address problem: On anticoagulation GI prophylaxis. (5) Advance care planning Current Visit: Yes Status: Acute Plan to address problem: Disease education conducted, care plan discussed, diagnosis discussed, prognosis discussed. Patient is full code. Patient acknowledged understanding and agreement with care plan. +30 minutes. Disposition: 01 HOME / SELF CARE / HOMELESS Final Discharge Diagnosis (Prints w/discharge instructions): Non-STEMI. Hypertensive emergency. WILLIAM. Underlying chronic kidney disease Time spent for discharge: 35 minutes - Discharge Diagnoses (1) NSTEMI (non-ST elevated myocardial infarction) Status: Acute (2) Hypertensive emergency Status: Acute (3) WILLIAM (acute kidney injury) Status: Acute (4) DVT prophylaxis Status: Acute (5) Advance care planning Status: Acute Core Measure Documentation - Palliative Care Palliative Care/ Comfort Measures: Not Applicable - Core Measures Any of the following diagnoses?: none Exam - Constitutional Vitals: Temp Pulse Resp BP Pulse Ox 98.3 F 78 16 174/111 96 04/03/22 08:22 04/03/22 15:11 04/03/22 15:26 04/03/22 15:26 04/03/22 14:00 General appearance: Present: no acute distress, well-nourished - EENT Eyes: Present: PERRL ENT: hearing intact, clear oral mucosa - Neck Neck: Present: supple, normal ROM - Respiratory Respiratory effort: normal Respiratory: bilateral: CTA - Cardiovascular Heart Sounds: Present: S1 & S2. Absent: rub, click - Extremities Extremities: pulses symmetrical, No edema Peripheral Pulses: within normal limits - Abdominal General gastrointestinal: Present: soft, non-tender, non-distended, normal bowel sounds Male genitourinary: Present: normal - Integumentary Integumentary: Present: clear, warm, dry - Musculoskeletal Musculoskeletal: gait normal, strength equal bilaterally - Psychiatric Psychiatric: appropriate mood/affect, intact judgment & insight - Neurologic Neurologic: CNII-XII intact, moves all extremities Plan Activity: no restrictions Diet: low fat, low cholesterol, low salt Follow up with: PRIMARY CAREMD [Primary Care Provider] - 3-5 Days KECIA AREVALO MD [Staff Physician] - 7 Days HIRO ADAMSON MD [Staff Physician] - 7 Days
--- NOTE | 2022-04-03 16:28 | Treadmill Report ---
DATE OF SERVICE: 04/01/2022 NUCLEAR PERFUSION SCAN REFERRING PHYSICIAN: Hospitalist claudio. PROTOCOL: The patient was assessed in postabsorptive state, given 10 mCi of technetium at rest. The patient had rest imaging. The patient underwent Lexiscan stress test per standard protocol. At peak stress, the patient given 26 mCi technetium. Shortly thereafter, the patient had stress imaging. Raw imaging reveals mild GI artifact, no significant motion effect. SPECT imaging examined carefully in horizontal long axis, vertical long axis, short axis views. LV chamber size is mildly dilated. There is a large densely fixed anterior, anteroapical, and a defect consistent with large prior myocardial infarction. Minimal residual ischemia. No gaiting performed. CONCLUSIONS: Abnormal myocardial perfusion scan with large anterior, anteroapical defect consistent with prior myocardial infarction, dilated left ventricle. No gating performed. Results discussed with the patient. TID: [id number] RECEIPT: [id number] LISA/JONAH/ELIUD
[2022-04-03 17:16] VITALS: BP 136/89
--- NOTE | 2022-04-04 10:47 | Electrocardiograph Report ---
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
== END 2022-04-03 19:30 | disposition home or self-care (01) | DRG 281 ==
LOC: ED 01:02 → 4A 11:32
PROVIDERS: ADMIT Internal Medicine; ATTEND Internal Medicine
PROC: 4A02XM4 Measurement of Cardiac Total Activity, External Approach (ICD-10-PCS; 2022-04-01)
PROC: 3E073KZ Introduction of Other Diagnostic Substance into Coronary Artery, Percutaneous Approach (ICD-10-PCS; 2022-04-01)
PROC: 4A023N7 Measurement of Cardiac Sampling and Pressure, Left Heart, Percutaneous Approach (ICD-10-PCS; principal; 2022-04-03)
PROC: B2111ZZ Fluoroscopy of Multiple Coronary Arteries using Low Osmolar Contrast (ICD-10-PCS; 2022-04-03)
PROC: B2151ZZ Fluoroscopy of Left Heart using Low Osmolar Contrast (ICD-10-PCS; 2022-04-03)
DX: I21.4 Non-ST elevation (NSTEMI) myocardial infarction (principal); N17.9 Acute kidney failure, unspecified; I16.1 Hypertensive emergency; I16.0 Hypertensive urgency; I12.9 Hypertensive chronic kidney disease with stage 1 through stage 4 chronic kidney disease, or unspecified chronic kidney disease; Z82.49 Family history of ischemic heart disease and other diseases of the circulatory system; N18.31 Chronic kidney disease, stage 3a; Z91.14 Patient's other noncompliance with medication regimen
CPT/HCPCS: 36415; 71045; 76770; 78452; 80048; 80053; 80061; 83735; 84484; 85014; 85018; 85025; 85049; 85520; 85610; 85730; 86850; 86900; 86901; 93005; 93017; 93306; 93458; 96372; 96374; 99285; G0378; J1815; J3490; A9502; C1894; C8929; J0360; J1644; J2060; J2250; J2785; J3010; J7030; J7040; Q9967